=== PATIENT | female | born 1940 | race Caucasian/White ===

== ENCOUNTER 2017-02-08 12:51 | Inpatient (IN) | payer MEDICARE, BC ==
[~2017-02-08] VITALS: Ht 154.9 cm; Wt 58.1 kg
[~2017-02-08 12:51] MED LIST: ALEN70TA7 PO; AMIT10TA92 PO; CALC-5 PO; LISI1TAB PO; LOPE-26 PO; METOPROLOL PO; PHEN30TA40 PO; [UNRECOGNIZED DRUG - CODE] PO
--- OUTSIDE RECORDS SUMMARY | 2017-02-08 12:55 | XMS REPORT | Referral Summary ---
Author Author [facility] Organization [facility] Address Unknown Phone Unavailable Care Team Providers Care Master Rigger Name Role Phone GerripoloMichael belcher Primary Care Physician [phone] Encounter VC Date(s): 03/29/15 - 03/29/15 [facility] [address] [place] [address] [place] Hu [id number] Discharge Diagnosis: Age related osteoporosis Discharge Diagnosis: Seizure disorder Discharge Diagnosis: Essential hypertension Discharge Disposition: 01-Home or Self Care Attending Physician: Parker Ayala MD Admitting Physician: Parker Ayala MD Vital Signs Most recent to 1 oldest [Reference Range]: Temperature Tympanic 35.4 degC [36.6-38.1 degC] *LOW* (03/29/15 10:02 AM) Peripheral Pulse 65 bpm Rate [60-100 bpm] (03/29/15 10:02 AM) Respiratory Rate 16 br/min [14-20 br/min] (03/29/15 10:02 AM) Blood Pressure 102/68 mmHg [90-140/60-90 mmHg] (03/29/15 10:02 AM) SpO2 96 % (03/29/15 10:02 AM) Problem List Condition Effective Dates Status Health Status Informant Anemia(Confirmed) Resolved Carcinoma in situ of Resolved cervix(Confirmed) Colon Resolved ulcer(Confirmed) Dilated bile duct - Resolved dilated common bile duct(Confirmed) Fibrocystic Resolved disease(Confirmed) Hypoglycemia(Confirm Resolved ed) Pyloric channel Resolved ulcer(Confirmed) Allergies, Adverse Reactions, Alerts Substance Reaction Severity Status aspirin COLON BLEEDING Severe Active ULCERITIVE COLITIS PER DR ZUNIGA Medications Fosamax 70 mg oral tablet See Instructions, TAKE 1 TABLET BY MOUTH ONCE WEEKLY BEFORE BREAKFAST, ON AN EMPTY STOMACH: REMAIN UPRIGHT FOR 30 MINUTES, # 12 tabs, eRx: [facility] # [id number], TAKE 1 TABLET BY MOUTH ONCE WEEKLY BEFORE BREAKFAST, ON AN EMPTY STOMACH : REMAIN UPRIG... Start Date: 08/08/15 Status: Ordered Imodium A-D 2 mg, Oral, Diarrhea/Loose Stools, 0 Refill(s) Start Date: 03/30/14 Status: Ordered lisinopril 10 mg oral tablet 10 mg 1 tabs, Oral, Daily, # 90 tabs, 1 Refill(s), Pharmacy: [facility] # [id number], 1 tabs Oral Daily Start Date: 07/31/15 Status: Ordered Melatonin Bedtime (once a day), 0 Refill(s) Start Date: 11/29/14 Status: Ordered Metoprolol Tartrate 50 mg oral tablet See Instructions, TAKE ONE-HALF TABLET BY MOUTH TWICE A DAY WITH MEALS, # 90 tabs, eRx: [facility] #[id number], TAKE ONE-HALF TABLET BY MOUTH TWICE A DAY WITH MEALS Start Date: 07/20/15 Status: Ordered multivitamin 1 tabs, Oral, Daily, 0 Refill(s) Start Date: 03/30/14 Status: Ordered Os-John 500 2 tabs, Oral, Daily, 0 Refill(s) Start Date: 03/30/14 Status: Ordered PHENobarbital 32.4 mg oral tablet See Instructions, TAKE 3 TABLETS BY MOUTH EVERY MORNING AND 2 TABLETS IN THE EVENING, # 450 tabs, 0 Refill(s) Start Date: 07/27/15 Status: Ordered Results Chemistry Most recent to 1 oldest [Reference Range]: Sodium Lvl [135-144 133 mEq/L mEq/L] *LOW* (03/29/15 10:40 AM) Potassium Lvl 4.6 mEq/L [3.5-5.2 mEq/L] (03/29/15 10:40 AM) Chloride [99-111 97 mEq/L mEq/L] *LOW* (03/29/15 10:40 AM) CO2 [22-31 mEq/L] 29 mEq/L (03/29/15 10:40 AM) AGAP [3-20] 7 (03/29/15 10:40 AM) BUN [10-20 mg/dL] 13 mg/dL (03/29/15 10:40 AM) Glucose Lvl [70-99 84 mg/dL mg/dL] (03/29/15 10:40 AM) Creatinine Lvl 0.72 mg/dL [0.57-1.11 mg/dL] (03/29/15 10:40 AM) eGFR [>60 mL/min] >60 mL/min 1 (03/29/15 10:40 AM) Calcium Lvl 9.5 mg/dL [8.9-10.5 mg/dL] (03/29/15 10:40 AM) 1Result Comment: Multiply eGFR results by 1.21 for race. Immunizations Vaccine Date Refusal Reason influenza virus vaccine, inactivated 07/31/15 influenza virus vaccine, inactivated 07/29/14 influenza virus vaccine, live 07/21/13 pneumococcal 23-polyvalent vaccine 07/21/13 Procedures Procedure Date Related Diagnosis Body Site Bilateral Cataract extraction and insertion 2014 of intraocular lens Left Cataract extraction and insertion of 2014 intraocular lens Lysis of adhesions - for sm. bowel 10/06/13 obstruction Colonoscopy1 2010 Colonoscopy normal 10/06/07 ERCP - no masses 10/06/02 Transfusion2 10/06/02 Colonoscopy 2003 Vertebroplasty T12 2002 Appendectomy 10/06/91 Cholecystectomy 10/06/91 Gastroduodenostomy - Bilroth 1 10/06/91 Vagotomy 10/06/91 Biopsy of breast - LT Bone marrow aspiration Bone marrow biopsy BSO - Bilateral salpingo-oophorectomy Esophagogastroduodenoscopy X23 Intraoral - sialithotomy Sigmoidoscopy=proctitis Surgery - RT. thumb Tonsillectomy Ulcerative colitis - proctoscopy Vaginal hysterectomy 1normal 2anemia 95879 & 2003 Social History Social History Type Response Smoking Status Former smoker; Type: Cigarettes Assessment and Plan Extracted from: Title: Ambulatory Patient Education Author: Parker Ayala MD Date: Family Medicine Hypertension As your heart beats, it forces blood through your arteries. This force is your blood pressure. If the pressure is too high, it is called hypertension (HTN) or high blood pressure. HTN is dangerous because you may have it and not know it. High blood pressure may mean that your heart has to work harder to pump blood. Your arteries may be narrow or stiff. The extra work puts you at risk for heart disease, stroke, and other problems. Blood pressure consists of two numbers, a higher number over a lower, 110/72, for example. It is stated as "110 over 72." The ideal is below 120 for the top number (systolic ) and under 80 for the bottom (diastolic ). Write down your blood pressure today. You should pay close attention to your blood pressure if you have certain conditions such as: Heart failure. Prior heart attack. Diabetes Chronic kidney disease. Prior stroke. Multiple risk factors for heart disease. To see if you have HTN, your blood pressure should be measured while you are seated with your arm held at the level of the heart. It should be measured at least twice. A one-time elevated blood pressure reading (especially in the Emergency Department) does not mean that you need treatment. There may be conditions in which the blood pressure is different between your right and left arms. It is important to see your caregiver soon for a recheck. Most people have essential hypertension which means that there is not a specific cause. This type of high blood pressure may be lowered by changing lifestyle factors such as: Stress. Smoking. Lack of exercise. Excessive weight. Drug/tobacco/alcohol use. Eating less salt. Most people do not have symptoms from high blood pressure until it has caused damage to the body. Effective treatment can often prevent, delay or reduce that damage. TREATMENT When a cause has been identified, treatment for high blood pressure is directed at the cause. There are a large number of medications to treat HTN. These fall into several categories, and your caregiver will help you select the medicines that are best for you. Medications may have side effects. You should review side effects with your caregiver. If your blood pressure stays high after you have made lifestyle changes or started on medicines, Your medication(s) may need to be changed. Other problems may need to be addressed. Be certain you understand your prescriptions, and know how and when to take your medicine. Be sure to follow up with your caregiver within the time frame advised ( usually within two weeks) to have your blood pressure rechecked and to review your medications. If you are taking more than one medicine to lower your blood pressure, make sure you know how and at what times they should be taken. Taking two medicines at the same time can result in blood pressure that is too low. SEEK IMMEDIATE MEDICAL CARE IF: You develop a severe headache, blurred or changing vision, or confusion. You have unusual weakness or numbness, or a faint feeling. You have severe chest or abdominal pain, vomiting, or breathing problems. MAKE SURE YOU: Understand these instructions. Will watch your condition. Will get help right away if you are not doing well or get worse. Document Released: 09/22/2006 Document Revised: 12/14/2012 Document Reviewed: ExitCare Patient Information 2014 [employer] Follow Up With: Where: When: Parker Ayala [address] [place] [address] Drive; Via [facility] [place] [address] Business (1) Within 3 to 5 days Comments: Extracted from: Title: Office Visit Note Author: Parker Ayala MD Date: 03/29/15 Assessment/Plan Age related osteoporosis She will be due for bone densitometry after July 27, 2015. Essential hypertension Basic metabolic profile will be rechecked. Ordered: Basic Metabolic Panel Seizure disorder She will continue her present medication.
--- OUTSIDE RECORDS SUMMARY | 2017-02-08 12:55 | XMS REPORT | Referral Summary ---
Author Organization Unknown Address Unknown Phone Unavailable Care Team Providers Care Analytics Consultant Name Role Phone Morgan Ayala Primary Care Physician [phone] Encounter VC Date(s): 11/29/14 - 11/29/14 [facility] [address] [place] [address] [place] Hu [id number] Discharge Diagnosis: Seizure disorder Discharge Diagnosis: Age related osteoporosis Discharge Diagnosis: Essential hypertension Discharge Disposition: Home or Self Care Attending Physician: Parker Ayala MD Admitting Physician: Parker Ayala MD Vital Signs Most recent to 1 oldest [Reference Range]: Temperature Oral 36.6 degC [35.8-37.3 degC] (11/29/14 10:36 AM) Peripheral Pulse 55 bpm Rate [60-100 bpm] *LOW* (11/29/14 10:36 AM) Respiratory Rate 14 br/min [14-20 br/min] (11/29/14 10:36 AM) Blood Pressure 115/76 mmHg [90-140/60-90 mmHg] (11/29/14 10:36 AM) Most recent to 1 oldest [Reference Range]: SpO2 97 % (11/29/14 10:36 AM) Problem List Condition Effective Dates Status [...] FOR 30 MINUTES, # 12 tabs, eRx: [facility] # [id number], TAKE 1 TABLET BY MOUTH ONCE WEEKLY BEFORE BREAKFAST, ON AN EMPTY STOMACH : REMAIN UPRIG... Special Instructions: TAKE 1 TABLET BY MOUTH ONCE WEEKLY BEFORE BREAKFAST, ON AN EMPTY STOMACH: REMAIN UPRIGHT FOR 30 MINUTES Start Date: 11/29/14 Status: Ordered Imodium A-D 2 mg, Oral, Diarrhea/Loose Stools, 0 Refill(s) Start Date: 03/30/14 Status: Ordered lisinopril-hydrochlorothiazide 20 mg-25 mg oral tablet See Instructions, TAKE ONE-HALF TABLET BY MOUTH EVERY DAY, # 45 tabs, eRx: [facility] #[id number], TAKE ONE-HALF TABLET BY MOUTH EVERY DAY Special Instructions: TAKE ONE-HALF TABLET BY MOUTH EVERY DAY Start Date: 10/31/14 Status: Ordered Melatonin Bedtime (once a day), 0 Refill(s) Start Date: 11/29/14 Status: Ordered Metoprolol Tartrate 50 mg oral tablet See Instructions, TAKE ONE-HALF TABLET BY MOUTH TWICE A DAY WITH MEALS, # 90 tabs, eRx: [facility] #[id number], TAKE ONE-HALF TABLET BY MOUTH TWICE A DAY WITH MEALS Special Instructions: TAKE ONE-HALF TABLET BY MOUTH TWICE A DAY WITH MEALS Start Date: 10/14/14 Status: Ordered multivitamin 1 tabs, Oral, Daily, 0 Refill(s) Start Date: 03/30/14 Status: Ordered Os-John 500 2 tabs, Oral, Daily, 0 Refill(s) Start Date: 03/30/14 Status: Ordered PHENobarbital 32.4 mg oral tablet See Instructions, TAKE 3 TABLETS BY MOUTH EVERY MORNING AND 2 TABLETS IN THE EVENING, # 450 tabs, 0 Refill(s), Patient will need follow up appointment prior to next refill Special Instructions: TAKE 3 TABLETS BY MOUTH EVERY MORNING AND 2 TABLETS IN THE EVENING Start Date: 10/31/14 Status: Ordered Results No data available for this section Immunizations Vaccine Date Refusal Reason influenza virus vaccine, inactivated 07/29/14 influenza virus vaccine, live 07/21/13 pneumococcal 13-valent conjugate vaccine 07/21/13 Procedures Procedure Date Related Diagnosis Body Site Left Cataract extraction and insertion of 2015 intraocular lens Lysis of adhesions - for [...] colitis - proctoscopy Vaginal hysterectomy 1normal 2anemia 65106 & 2003 Social History Social History Type [...] Released: 09/22/2006 Document Revised: 12/14/2012 Document Reviewed: [facility] [place] Patient Information 2014 [employer]. Follow Up With: Where: When: Parker Ayala [address] [place] [address] Drive; [place] [address] Business (1) In 4 months 03/29/2015 Comments: Extracted from: Title: Office Visit Note Author: Parker Ayala MD Date: 11/29/14 Assessment/Plan Age related osteoporosis She will be due for repeat bone densitometry in August 2015. Ordered: Office Visit Level 4 Est 29849 Essential hypertension This has been well controlled. She will continue her same medication. Ordered: Office Visit Level 4 Est 28084 Seizure disorder This has been stable recently. Ordered: Office Visit Level 4 Est 13211 Orders: alendronate, See Instructions, TAKE 1 TABLET BY MOUTH ONCE WEEKLY BEFORE BREAKFAST, ON AN EMPTY STOMACH: REMAIN UPRIGHT FOR 30 MINUTES, # 12 tabs , eRx: [facility] #[id number], TAKE 1 TABLET BY MOUTH ONCE WEEKLY BEFORE BREAKFAST, ON AN EMPTY STOMACH: REMAIN UPRIG...
--- OUTSIDE RECORDS SUMMARY | 2017-02-08 12:55 | XMS REPORT | Referral Summary ---
Author Author [facility] Organization [facility] Address Unknown Phone Unavailable Care Team Providers Care Rigging Man Name Role Phone Michael Timmons Primary Care Physician [phone] Encounter VC Date(s): 10/18/15 - 10/18/15 [facility], [address] [place] Hu [id number] Discharge Disposition: 01-Home or Self Care Attending Physician: Zeus Timmons MD Admitting Physician: Zeus Timmons MD Vital Signs Most recent to 1 oldest [Reference Range]: Blood Pressure 110/70 mmHg [90-140/60-90 mmHg] (10/18/15 1:07 PM) Problem List Condition Effective Dates Status Health Status Informant Adult idiopathic Active generalized osteoporosis(Confirm ed) Anemia(Confirmed) Resolved Benign essential Active hypertension(Confirm ed) Carcinoma in situ of Resolved cervix(Confirmed) Colon Resolved ulcer(Confirmed) Dilated bile duct - Resolved dilated common bile duct(Confirmed) Epilepsy(Confirmed) Active Fibrocystic Resolved disease(Confirmed) Hypoglycemia(Confirm Resolved ed) Hyponatremia(Confirm Active ed) Pyloric channel Resolved ulcer(Confirmed) Allergies, Adverse Reactions, Alerts Substance Reaction Severity Status aspirin COLON BLEEDING Severe Active ULCERITIVE COLITIS PER DR ZUNIGA Medications Fosamax 70 mg oral tablet See Instructions, TAKE 1 TABLET BY MOUTH ONCE WEEKLY BEFORE BREAKFAST, ON AN EMPTY STOMACH: REMAIN UPRIGHT FOR 30 MINUTES, # 12 tabs, 1 Refill(s), Pharmacy: [facility] #[id number], TAKE 1 TABLET BY MOUTH ONCE WEEKLY BEFORE BREAKFAST, ON AN EMPTY STO... Start Date: 10/18/15 Status: Ordered Imodium A-D 2 mg, Oral, Diarrhea/Loose Stools, 0 Refill(s) Start Date: 03/30/14 Status: Ordered lisinopril 10 mg oral tablet 10 mg 1 tabs, Oral, Daily, # 90 tabs, 1 Refill(s), Pharmacy: [facility] # [id number], 1 tabs Oral Daily Start Date: 07/31/15 Status: Ordered lisinopril 10 mg oral tablet See Instructions, TAKE 1 TABLET BY MOUTH DAILY, # 90 tabs, 1 Refill(s), eRx: [facility] #[id number], TAKE 1 TABLET BY MOUTH DAILY Start Date: 10/18/15 Status: Ordered Melatonin Bedtime (once a day), 0 Refill(s) Start Date: 11/29/14 Status: Ordered Metoprolol Tartrate 50 mg oral tablet See Instructions, TAKE ONE-HALF TABLET BY MOUTH TWICE A DAY WITH MEALS, # 90 tabs, 1 Refill(s), Pharmacy: [facility] #[id number], TAKE ONE-HALF TABLET BY MOUTH TWICE A DAY WITH MEALS Start Date: 10/18/15 Status: Ordered multivitamin 1 tabs, Oral, Daily, 0 Refill(s) Start Date: 03/30/14 Status: Ordered Os-John 500 2 tabs, Oral, Daily, 0 Refill(s) Start Date: 03/30/14 Status: Ordered PHENobarbital 32.4 mg oral tablet See Instructions, TAKE 3 TABLETS BY MOUTH EVERY MORNING AND 2 TABLETS IN THE EVENING, # 450 tabs, 1 Refill(s) Start Date: 10/18/15 Status: Ordered Results No data available for this section Immunizations Vaccine Date Refusal Reason influenza virus vaccine, inactivated 07/31/15 influenza virus vaccine, inactivated 07/29/14 influenza virus vaccine, live 07/21/13 pneumococcal 23-polyvalent vaccine 07/21/13 Procedures Procedure Date Related Diagnosis Body Site Bilateral Cataract extraction and insertion 2014 of intraocular lens Left Cataract extraction and insertion of 2015 [...] colitis - proctoscopy Vaginal hysterectomy 1normal 2anemia 00654 & 2003 Social History Social History Type Response Smoking Status Former smoker; Type: Cigarettes Assessment and Plan Extracted from: Title: Ambulatory Patient Education Author: Zeus Timmons MD Date: Preventive Medicine Bone Health Our bones do many things. They provide structure, protect organs, anchor muscles , and store calcium. Adequate calcium in your diet and weight-bearing physical activity help build strong bones, improve bone amounts, and may reduce the risk of weakening of bones (osteoporosis) later in life. PEAK BONE MASS By age 20, the average woman has acquired most of her skeletal bone mass. A large decline occurs in older adults which increases the risk of osteoporosis. In women this occurs around the time of menopause. It is important for young girls to reach their peak bone mass in order to maintain bone health throughout life. A person with high bone mass as a young adult will be more likely to have a higher bone mass later in life. Not enough calcium consumption and physical activity early on could result in a failure to achieve optimum bone mass in adulthood. OSTEOPOROSIS Osteoporosis is a disease of the bones. It is defined as low bone mass with deterioration of bone structure. Osteoporosis leads to an increase risk of fractures with falls. These fractures commonly happen in the wrist, hip, and spine. While men and women of all ages and background can develop osteoporosis, some of the risk factors for osteoporosis are: Female. White. Postmenopausal. Older adults. Small in body size. Eating a diet low in calcium. Physically inactive. Smoking. Use of some medications. Family history. CALCIUM Calcium is a mineral needed by the body for healthy bones, teeth, and proper function of the heart, muscles, and nerves. The body cannot produce calcium so it must be absorbed through food. Good sources of calcium include: Dairy products (low fat or nonfat milk, cheese, and yogurt). Dark green leafy vegetables (bok skip and broccoli). Calcium fortified foods (orange juice, cereal, bread, soy beverages, and tofu products). Nuts (almonds). Recommended amounts of calcium vary for individuals. RECOMMENDED CALCIUM INTAKES Age and Amount in mg per day Children 1 to 3 years / 700 mg Children 4 to 8 years / 1,000 mg Children 9 to 13 years / 1,300 mg Teens 14 to 18 years / 1,300 mg Adults 19 to 50 years / 1,000 mg Adult women 51 to 70 years / 1,200 mg Adults 71 years and older / 1,200 mg and teens / 1,300 mg and adults / 1,000 mg Vitamin D also plays an important role in healthy bone development. Vitamin D helps in the absorption of calcium. WEIGHT-BEARING PHYSICAL ACTIVITY Regular physical activity has many positive health benefits. Benefits include strong bones. Weight-bearing physical activity early in life is important in reaching peak bone mass. Weight-bearing physical activities cause muscles and bones to work against gravity. Some examples of weight bearing physical activities include: Walking, jogging, or running. Field Hockey. Jumping rope. Dancing. Soccer. Tennis or Racquetball. Stair climbing. Basketball. Hiking. Weight lifting. Aerobic fitness classes. Including weight-bearing physical activity into an exercise plan is a great way to keep bones healthy. Adults: Engage in at least 30 minutes of moderate physical activity on most, preferably all, days of the week. Children: Engage in at least 60 minutes of moderate physical activity on most, preferably all, days of the week. FOR MORE INFORMATION [place] [employer], Center for Nutrition Policy and Promotion: www.cnpp.usda.gov National Osteoporosis Foundation: www.nof.org Document Released: 12/12/2004 Document Revised: 01/17/2014 Document Reviewed: ExitCare Patient Information 2015 [facility], [facility]. This information is not intended to replace advice given to you by your health care provider. Make sure you discuss any questions you have with your health care provider. No follow up information was provided. Extracted from: Title: Office Visit Note Author: Zeus Timmons MD Date: 10/18/15 Assessment/Plan Adult idiopathic generalized osteoporosis This issue was reviewed, appears stable, and current therapy continued except as mentioned. Appropriate lab was reviewed from the most recent appropriate entry and lab was ordered if needed in the cpoe/nursing orders, and follow up recommended generally in 90 days and no later then six months. Refill meds. DXA utd by report. Anemia The patient's issue is nearly or completely resolved. There is no further issues or testing desired by them at this time. Lab pending. Benign essential hypertension This issue was reviewed, appears stable, and current therapy continued except as mentioned. Appropriate lab was reviewed from the most recent appropriate entry and lab was ordered if needed in the cpoe /nursing orders, and follow up recommended generally in 90 days and no later then six months. Refill meds. The patient has family members present who are agreeable with today's plan and have no additional concerns or requests. here. Carcinoma in situ of cervix The patient's issue is nearly or completely resolved. There is no further issues or testing desired by them at this time. Epilepsy This issue was reviewed, appears stable, and current therapy continued except as mentioned. Appropriate lab was reviewed from the most recent appropriate entry and lab was ordered if needed in the cpoe/nursing orders, and follow up recommended generally in 90 days and no later then six months. No seizures inyears. Hyponatremia The patient's issue is nearly or completely resolved. There is no further issues or testing desired by them at this time. Likely secondary to seizure meds. Resolved with last lab.
--- OUTSIDE RECORDS SUMMARY | 2017-02-08 12:55 | XMS REPORT | Referral Summary ---
Author Author [facility] Organization [facility] Address Unknown Phone Unavailable Care Team Providers Care Biscuit Maker Name Role Phone GerrialvaroMichael Primary Care Physician [phone] Encounter VC Date(s): 07/31/15 - 07/31/15 [facility] [address] [place] [address] [place] Hu [id number] Discharge Diagnosis: Essential hypertension Discharge Diagnosis: Seizure disorder Discharge Diagnosis: Age related osteoporosis Discharge Disposition: 01-Home or Self Care Attending Physician: Parker Ayala MD Admitting Physician: Parker Ayala MD Vital Signs Most recent to 1 oldest [Reference Range]: Temperature Tympanic 36.3 degC [36.6-38.1 degC] *LOW* (07/31/15 10:16 AM) Peripheral Pulse 66 bpm Rate [60-100 bpm] (07/31/15 10:16 AM) Blood Pressure 114/66 mmHg [90-140/60-90 mmHg] (07/31/15 10:16 AM) SpO2 96 % (07/31/15 10:16 AM) Problem List Condition Effective Dates Status [...] MINUTES, # 12 tabs, 1 Refill(s), Pharmacy: [facility] #[id number], TAKE 1 TABLET BY MOUTH ONCE WEEKLY BEFORE BREAKFAST, ON AN EMPTY STO... Start Date: 10/18/15 Status: Ordered Imodium A-D 2 mg, Oral, Diarrhea/Loose Stools, 0 Refill(s) Start Date: 03/30/14 Status: Ordered lisinopril 10 mg oral tablet 10 mg 1 tabs, Oral, Daily, # 90 tabs, 1 Refill(s), Pharmacy: [facility] # [id number], 1 tabs Oral Daily Start Date: 07/31/15 Status: Ordered lisinopril 10 mg oral tablet See Instructions, TAKE 1 TABLET BY MOUTH DAILY, # 90 tabs, 1 Refill(s), eRx: [facility] #[id number], TAKE 1 TABLET BY MOUTH DAILY Start Date: 10/18/15 Status: Ordered Melatonin Bedtime (once a day), 0 Refill(s) Start Date: 11/29/14 Status: Ordered Metoprolol Tartrate 50 mg oral tablet See Instructions, TAKE ONE-HALF TABLET BY MOUTH TWICE A DAY WITH MEALS, # 90 tabs, 1 Refill(s), Pharmacy: [facility] #[id number], TAKE ONE-HALF TABLET BY MOUTH TWICE A [...] # 450 tabs, 0 Refill(s) Start Date: 10/24/15 Status: Ordered Results No data available for [...] Colonoscopy normal 10/06/07 ERCP - no masses 1/1/03 Transfusion2 10/06/02 Colonoscopy 2003 Vertebroplasty T12 2002 Appendectomy 10/06/91 Cholecystectomy 10/06/91 Gastroduodenostomy - Bilroth 1 10/06/91 Vagotomy 10/06/91 Biopsy of breast - LT Bone marrow aspiration Bone marrow biopsy BSO - Bilateral salpingo-oophorectomy Esophagogastroduodenoscopy X23 Intraoral - sialithotomy Sigmoidoscopy=proctitis Surgery - RT. thumb Tonsillectomy Ulcerative colitis - proctoscopy Vaginal hysterectomy 1normal 2anemia 44496 & 2003 Social History Social History Type Response Smoking Status Former smoker; Type: Cigarettes Assessment and Plan Extracted from: Title: Ambulatory Patient Education Author: Parker Ayala MD Date: Family Medicine Hypertension Hypertension is another name for high blood pressure. High blood pressure forces your heart to work harder to pump blood. A blood pressure reading has two numbers, which includes a higher number over a lower number (example: 110/72 ). HOME CARE Have your blood pressure rechecked by your doctor. Only take medicine as told by your doctor. Follow the directions carefully. The medicine does not work as well if you skip doses. Skipping doses also puts you at risk for problems. Do not smoke. Monitor your blood pressure at home as told by your doctor. GET HELP IF: You think you are having a reaction to the medicine you are taking. You have repeat headaches or feel dizzy. You have puffiness (swelling) in your ankles. You have trouble with your vision. GET HELP RIGHT AWAY IF: You get a very bad headache and are confused. You feel weak, numb, or faint. You get chest or belly (abdominal) pain. You throw up (vomit). You cannot breathe very well. MAKE SURE YOU: Understand these instructions. Will watch your condition. Will get help right away if you are not doing well or get worse. Document Released: 03/10/2009 Document Revised: 09/27/2014 Document Reviewed: ExitCare Patient Information 2015 [email or web address]. This information is not intended to replace advice given to you by your health care provider. Make sure you discuss any questions you have with your health care provider. Follow Up With: Where: When: Parker Ayala [address] [place] [address] Drive; [place] [address] [employer] ([employer] In 4 months 12/01/2015 Comments: Extracted from: Title: Office Visit Note Author: Parker Ayala MD Date: 07/31/15 Assessment/Plan Age related osteoporosis She will plan to schedule bone densitometry in August,. Essential hypertension This is well controlled. She will continue her same medication. Seizure disorder She will continue her same medication. Phenobarbital level will be checked. Orders: lisinopril, 10 mg 1 tabs, Oral, Daily, # 90 tabs, 1 Refill(s), Pharmacy: [facility] #[id number], 1 tabs Oral Daily Addendum She will receive influenza immunization today. by Parker Ayala MD on July 31, 2015 11:25:59 CDT
--- OUTSIDE RECORDS SUMMARY | 2017-02-08 12:55 | XMS REPORT | Referral Summary ---
Author Author [facility] Organization [facility] Address Unknown Phone Unavailable Care Team Providers Care Operation Manager Name Role Phone Morgan Ayala Primary Care Physician [phone] Encounter VC Date(s): 07/31/15 - 07/31/15 [facility] [address] [place] [address] [place] [id number] Discharge Diagnosis: Essential hypertension Discharge Diagnosis: Seizure [...] FOR 30 MINUTES, # 12 tabs, eRx: [facility] # [id number], TAKE 1 TABLET BY MOUTH ONCE WEEKLY BEFORE BREAKFAST, ON AN EMPTY STOMACH : REMAIN UPRIG... Start Date: 05/11/15 Status: Ordered Imodium A-D 2 mg, Oral, Diarrhea/Loose Stools, 0 Refill(s) Start Date: 03/30/14 Status: Ordered lisinopril 10 mg oral tablet 10 mg 1 tabs, Oral, Daily, # 90 tabs, 1 Refill(s), Pharmacy: [facility] # [id number], 1 tabs Oral Daily Start Date: 07/31/15 Status: Ordered Melatonin Bedtime (once a day), 0 Refill(s) Start Date: 11/29/14 Status: Ordered Metoprolol Tartrate 50 mg oral tablet See Instructions, TAKE ONE-HALF TABLET BY MOUTH TWICE A DAY WITH MEALS, # 90 tabs, eRx: [facility] #[id number], TAKE ONE-HALF TABLET BY MOUTH TWICE A [...] Refill(s) Start Date: 07/27/15 Status: Ordered Results No data available for [...] colitis - proctoscopy Vaginal hysterectomy 1normal 2anemia 15278 & 2003 Social History Social History Type [...] Released: 03/10/2009 Document Revised: 09/27/2014 Document Reviewed: [facility] [place] Patient Information 2015 [place] [place] ? [facility]. This information is not intended to replace advice given to you by your health care provider. Make sure you discuss any questions you have with your health care provider. Follow Up With: Where: When: Parker Ayala [address]; [place] [address] Business (1) In 4 months 12/01/2015 Comments: Extracted from: [...] Daily, # 90 tabs, 1 Refill(s), Pharmacy: [facility] #[id number], 1 tabs Oral Daily Addendum She will receive influenza immunization today. by Parker Ayala MD on July 31, 2015 11:25:59 CDT
--- OUTSIDE RECORDS SUMMARY | 2017-02-08 12:55 | XMS REPORT | Referral Summary ---
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 Discharge Diagnosis: Epilepsy Discharge Diagnosis: Pyloric channel ulcer Discharge Diagnosis: Benign essential hypertension Discharge Disposition: 01-Home or Self Care Attending Physician: Zeus Timmons MD Admitting Physician: Zeus Timmons MD Vital Signs Most recent to 1 oldest [Reference Range]: Blood Pressure 140/80 mmHg [90-140/60-90 mmHg] (10/31/16 1:28 PM) Problem List Condition Effective Dates Status [...] Active ULCERITIVE COLITIS PER DR ZUNIGA Medications ALENDRONATE SODIUM 70 MG TAB See Instructions, TAKE 1 TABLET BY MOUTH ONCE WEEKLY BEFORE BREAKFAST, ON AN EMPTY STOMACH: REMAIN UPRIGHT FOR 30 MINUTES, # 12 tabs, eRx: [facility] # [id number], TAKE 1 TABLET BY MOUTH ONCE WEEKLY BEFORE BREAKFAST, ON AN EMPTY STOMACH : REMAIN UPRIG... Start Date: 07/08/16 Status: Ordered Imodium A-D 2 mg, Oral, Diarrhea/Loose Stools, 0 Refill(s) Start Date: 03/30/14 Status: Ordered lisinopril 10 mg oral tablet 10 mg 1 tabs, Oral, Daily, # 90 tabs, 1 Refill(s), Pharmacy: [facility] # [id number], 1 tabs Oral Daily Start Date: 07/09/16 Status: Ordered Melatonin Bedtime (once a day), 0 Refill(s) Start Date: 11/29/14 Status: Ordered Metoprolol Tartrate 50 mg oral tablet See Instructions, TAKE ONE-HALF TABLET BY MOUTH TWO TIMES A DAY WITH FOOD/ PT DUE FOR APPOINTMENT, # 90 tabs, 0 Refill(s), Pharmacy: [facility] #[id number] Start Date: 10/08/16 Status: Ordered multivitamin 1 tabs, Oral, Daily, 0 Refill(s) Start Date: 03/30/14 Status: Ordered Os-John 500 2 tabs, Oral, Daily, 0 Refill(s) Start Date: 03/30/14 Status: Ordered PHENobarbital 32.4 mg oral tablet See Instructions, TAKE 3 TABLETS BY MOUTH EVERY MORNING AND 2 TABLETS IN THE EVENING N [place], # 450 tabs, 1 Refill(s) Start Date: 10/31/16 Status: Ordered Reclast 5 mg/100 mL intravenous solution 5 mg 100 mL, IV, Once, IV infusion yearly for osteoporosis., 0 Refill(s) Start Date: 08/01/16 Status: Ordered Results No data available for this section Immunizations Given and Recorded Vaccine Date Status Refusal Reason influenza virus vaccine, inactivated 10/16/16 Given influenza virus vaccine, inactivated 07/31/15 Given influenza virus vaccine, inactivated 07/29/14 Recorded influenza virus vaccine, live 07/21/13 Given pneumococcal 13-valent conjugate vaccine 10/16/16 Given pneumococcal 13-valent conjugate vaccine1 07/21/13 Given pneumococcal 23-polyvalent vaccine 07/21/13 Given 1Result Comment: [06/07/2015 Uncharted] Uploaded in Error - CC Procedures Procedure Date Related Diagnosis Body Site [...] colitis - proctoscopy Vaginal hysterectomy 1normal 2anemia 75922 & 2003 Social History Social History Type Response Smoking Status Former smoker; Type: Cigarettes; Tobacco use per day: 1 Pack1 130 pack years Assessment and Plan Extracted from: Title: Ambulatory Patient Education Author: Zeus Timmons MD Date: Preventive Medicine Hypertension Hypertension, commonly called high blood pressure, is when the force of blood pumping through your arteries is too strong. Your arteries are the blood vessels that carry blood from your heart throughout your body. A blood pressure reading consists of a higher number over a lower number, such as 110/72. The higher number (systolic) is the pressure inside your arteries when your heart pumps. The lower number (diastolic) is the pressure inside your arteries when your heart relaxes. Ideally you want your blood pressure below 120/80. Hypertension forces your heart to work harder to pump blood. Your arteries may become narrow or stiff. Having untreated or uncontrolled hypertension can cause heart attack, stroke, kidney disease, and other problems. RISK FACTORS Some risk factors for high blood pressure are controllable. Others are not. Risk factors you cannot control include: Race. You may be at higher risk if you are . Age. Risk increases with age. Gender. Men are at higher risk than women before age 45 years. After age 65, women are at higher risk than men. Risk factors you can control include: Not getting enough exercise or physical activity. Being overweight. Getting too much fat, sugar, calories, or salt in your diet. Drinking too much alcohol. SIGNS AND SYMPTOMS Hypertension does not usually cause signs or symptoms. Extremely high blood pressure (hypertensive crisis) may cause headache, anxiety, shortness of breath , and nosebleed. DIAGNOSIS To check if you have hypertension, your health care provider will measure your blood pressure while you are seated, with your arm held at the level of your heart. It should be measured at least twice using the same arm. Certain conditions can cause a difference in blood pressure between your right and left arms. A blood pressure reading that is higher than normal on one occasion does not mean that you need treatment. If it is not clear whether you have high blood pressure, you may be asked to return on a different day to have your blood pressure checked again. Or, you may be asked to monitor your blood pressure at home for 1 or more weeks. TREATMENT Treating high blood pressure includes making lifestyle changes and possibly taking medicine. Living a healthy lifestyle can help lower high blood pressure. You may need to change some of your habits. Lifestyle changes may include: Following the DASH diet. This diet is high in fruits, vegetables, and whole grains. It is low in salt, red meat, and added sugars. Keep your sodium intake below 2,300 mg per day. Getting at least 3045 minutes of aerobic exercise at least 4 times per week. Losing weight if necessary. Not smoking. Limiting alcoholic beverages. Learning ways to reduce stress. Your health care provider may prescribe medicine if lifestyle changes are not enough to get your blood pressure under control, and if one of the following is true: You are 1859 years of age and your systolic blood pressure is above 140. You are 60 years of age or older, and your systolic blood pressure is above 150. Your diastolic blood pressure is above 90. You have diabetes, and your systolic blood pressure is over 140 or your diastolic blood pressure is over 90. You have kidney disease and your blood pressure is above 140/90. You have heart disease and your blood pressure is above 140/90. Your personal target blood pressure may vary depending on your medical conditions, your age, and other factors. HOME CARE INSTRUCTIONS Have your blood pressure rechecked as directed by your health care provider. Take medicines only as directed by your health care provider. Follow the directions carefully. Blood pressure medicines must be taken as prescribed. The medicine does not work as well when you skip doses. Skipping doses also puts you at risk for problems. Do not smoke. Monitor your blood pressure at home as directed by your health care provider. SEEK MEDICAL CARE IF: You think you are having a reaction to medicines taken. You have recurrent headaches or feel dizzy. You have swelling in your ankles. You have trouble with your vision. SEEK IMMEDIATE MEDICAL CARE IF: You develop a severe headache or confusion. You have unusual weakness, numbness, or feel faint. You have severe chest or abdominal pain. You vomit repeatedly. You have trouble breathing. MAKE SURE YOU: Understand these instructions. Will watch your condition. Will get help right away if you are not doing well or get worse. This information is not intended to replace advice given to you by your health care provider. Make sure you discuss any questions you have with your health care provider. Document Released: 09/22/2006 Document Revised: 02/06/2016 Document Reviewed: [employer] Interactive Patient Education 2016 [employer] No follow up information was provided. Extracted from: Title: Office Visit Note Author: Zeus Timmons MD Date: 10/31/16 Assessment/Plan Benign essential hypertension This issue was reviewed, appears stable, and current therapy continued except as mentioned. Appropriate lab was reviewed from the most recent appropriate entry and lab was ordered if needed in the cpoe/nursing orders, and follow up recommended generally in 90 days and no later then six months. The patient reports their blood pressure has been stable at home and is not having any significant or related problems. There has been no chest pain, chest pressure, soa/ortega. The patient had an elevated blood pressure reading and is to monitor their bp and call with a report if consistently > 140/90. Carcinoma in situ of cervix The patient's [...] and no later then six months. No recent seizures. Pyloric channel ulcer The patient's issue is nearly or completely resolved. There is no further issues or testing desired by them at this time. The patient has family members present who are agreeable with today's plan and have no additional concerns or requests. here.
--- OUTSIDE RECORDS SUMMARY | 2017-02-08 12:55 | XMS REPORT | Referral Summary ---
Author Author [facility] Organization [facility] Address Unknown Phone Unavailable Care Team Providers Care Cemetery Warden Name Role Phone Michael Timmons Primary Care Physician [phone] Encounter VC Date(s): 10/16/16 - 10/16/16 [facility], [address] [place] [id number] Discharge Disposition: 01-Home or Self Care Attending Physician: Zeus Timmons MD Admitting Physician: Zeus Timmons MD Vital Signs Most recent to 1 oldest [Reference Range]: Blood Pressure 148/70 mmHg [90-140/60-90 mmHg] *HI* (10/16/16 1:12 PM) Problem List Condition Effective Dates Status [...] FOR 30 MINUTES, # 12 tabs, eRx: [facility] # [id number], TAKE 1 TABLET BY MOUTH ONCE WEEKLY BEFORE BREAKFAST, ON AN EMPTY STOMACH : REMAIN UPRIG... Start Date: 07/08/16 Status: Ordered Imodium A-D 2 mg, Oral, Diarrhea/Loose Stools, 0 Refill(s) Start Date: 03/30/14 Status: Ordered lisinopril 10 mg oral tablet 10 mg 1 tabs, Oral, Daily, # 90 tabs, 1 Refill(s), Pharmacy: [facility] # [id number], 1 tabs Oral Daily Start Date: 07/09/16 Status: Ordered Melatonin Bedtime (once a day), 0 Refill(s) Start Date: 11/29/14 Status: Ordered Metoprolol Tartrate 50 mg oral tablet See Instructions, TAKE ONE-HALF TABLET BY MOUTH TWO TIMES A DAY WITH FOOD/ PT DUE FOR APPOINTMENT, # 90 tabs, 0 Refill(s), Pharmacy: [facility] #[id number] Start Date: 10/08/16 Status: Ordered multivitamin 1 tabs, Oral, Daily, 0 Refill(s) Start Date: 03/30/14 Status: Ordered Os-John 500 2 tabs, Oral, Daily, 0 Refill(s) Start Date: 03/30/14 Status: Ordered PHENobarbital 32.4 mg oral tablet See Instructions, TAKE 3 TABLETS BY MOUTH EVERY MORNING AND 2 TABLETS IN THE EVENING N [facility], # 450 tabs, 0 Refill(s) Start Date: 07/24/16 Status: Ordered Reclast 5 mg/100 mL intravenous [...] Body Site Bilateral Cataract extraction and insertion 2015 of intraocular lens Left Cataract extraction and [...] colitis - proctoscopy Vaginal hysterectomy 1normal 2anemia 99390 & 2003 Social History Social History Type Response Smoking Status Former smoker; Type: Cigarettes; Tobacco use per day: 1 Pack1 130 pack years Assessment and Plan Extracted from: Title: Ambulatory Patient Education Author: John Guzman RN Date: 10/16/16 Geriatrics Fall Prevention in the Home Falls can cause injuries. They can happen to people of all ages. There are many things you can do to make your home safe and to help prevent falls. WHAT CAN I DO ON THE OUTSIDE OF MY HOME? Regularly fix the edges of walkways and driveways and fix any cracks. Remove anything that might make you trip as you walk through a door, such as a raised step or threshold. Trim any bushes or trees on the path to your home. Use bright outdoor lighting. Clear any walking paths of anything that might make someone trip, such as rocks or tools. Regularly check to see if handrails are loose or broken. Make sure that both sides of any steps have handrails. Any raised decks and porches should have guardrails on the edges. Have any leaves, snow, or ice cleared regularly. Use sand or salt on walking paths during winter. Clean up any spills in your garage right away. This includes oil or grease spills. WHAT CAN I DO IN THE BATHROOM? Use night lights. Install grab bars by the toilet and in the tub and shower. Do not use towel bars as grab bars. Use non-skid mats or decals in the tub or shower. If you need to sit down in the shower, use a plastic, non-slip stool. Keep the floor dry. Clean up any water that spills on the floor as soon as it happens. Remove soap buildup in the tub or shower regularly. Attach bath mats securely with double-sided non-slip rug tape. Do not have throw rugs and other things on the floor that can make you trip. WHAT CAN I DO IN THE BEDROOM? Use night lights. Make sure that you have a light by your bed that is easy to reach. Do not use any sheets or blankets that are too big for your bed. They should not hang down onto the floor. Have a firm chair that has side arms. You can use this for support while you get dressed. Do not have throw rugs and other things on the floor that can make you trip. WHAT CAN I DO IN THE KITCHEN? Clean up any spills right away. Avoid walking on wet floors. Keep items that you use a lot in cnkr-vs-ebvua places. If you need to reach something above you, use a strong step stool that has a grab bar. Keep electrical cords out of the way. Do not use floor korean or wax that makes floors slippery. If you must use wax, use non-skid floor wax. Do not have throw rugs and other things on the floor that can make you trip. WHAT CAN I DO WITH MY STAIRS? Do not leave any items on the stairs. Make sure that there are handrails on both sides of the stairs and use them. Fix handrails that are broken or loose. Make sure that handrails are as long as the stairways. Check any carpeting to make sure that it is firmly attached to the stairs. Fix any carpet that is loose or worn. Avoid having throw rugs at the top or bottom of the stairs. If you do have throw rugs, attach them to the floor with carpet tape. Make sure that you have a light switch at the top of the stairs and the bottom of the stairs. If you do not have them, ask someone to add them for you. WHAT ELSE CAN I DO TO HELP PREVENT FALLS? Wear shoes that: Do not have high heels. Have rubber bottoms. Are comfortable and fit you well. Are closed at the toe. Do not wear sandals. If you use a stepladder: Make sure that it is fully opened. Do not climb a closed stepladder. Make sure that both sides of the stepladder are locked into place. Ask someone to hold it for you, if possible. Clearly john paul and make sure that you can see: Any grab bars or handrails. First and last steps. Where the edge of each step is. Use tools that help you move around (mobility aids) if they are needed. These include: Canes. Walkers. Scooters. Crutches. Turn on the lights when you go into a dark area. Replace any light bulbs as soon as they burn out. Set up your furniture so you have a clear path. Avoid moving your furniture around. If any of your floors are uneven, fix them. If there are any pets around you, be aware of where they are. Review your medicines with your doctor. Some medicines can make you feel dizzy. This can increase your chance of falling. Ask your doctor what other things that you can do to help prevent falls. This information is not intended to replace advice given to you by your health care provider. Make sure you discuss any questions you have with your health care provider. Document Released: 07/19/2010 Document Revised: 02/06/2016 Document Reviewed: [employer] Interactive Patient Education 2016 [employer]. No follow up information was provided.
--- OUTSIDE RECORDS SUMMARY | 2017-02-08 12:55 | XMS REPORT | Referral Summary ---
Author Author [facility] Organization [facility] Address Unknown Phone Unavailable Care Team Providers Care Microsoft Bi Architect Name Role Phone Michael Timmons Primary Care Physician [phone] Encounter VC Date(s): 08/01/16 - 08/01/16 [facility], [address] [place] [id number] Discharge Disposition: 01-Home or Self Care Attending Physician: Zeus Timmons MD Admitting Physician: Zeus Timmons MD Vital Signs Most recent to 1 oldest [Reference Range]: Temperature Tympanic 36.5 degC [36.6-38.1 degC] *LOW* (08/01/16 11:10 AM) Peripheral Pulse 47 bpm Rate [60-100 bpm] *LOW* (08/01/16 11:10 AM) Blood Pressure 130/80 mmHg [90-140/60-90 mmHg] (08/01/16 11:10 AM) SpO2 98 % (08/01/16 11:10 AM) Problem List Condition Effective Dates Status [...] FOR 30 MINUTES, # 12 tabs, eRx: [facility] # [id number], TAKE 1 TABLET BY MOUTH ONCE WEEKLY BEFORE BREAKFAST, ON AN EMPTY STOMACH : REMAIN UPRIG... Start Date: 07/08/16 Status: Ordered Imodium A-D 2 mg, Oral, Diarrhea/Loose Stools, 0 Refill(s) Start Date: 03/30/14 Status: Ordered lisinopril 10 mg oral tablet 10 mg 1 tabs, Oral, Daily, # 90 tabs, 1 Refill(s), Pharmacy: [facility] # [id number], 1 tabs Oral Daily Start Date: 07/09/16 Status: Ordered Melatonin Bedtime (once a day), 0 Refill(s) Start Date: 11/29/14 Status: Ordered Metoprolol Tartrate 50 mg oral tablet See Instructions, TAKE ONE-HALF TABLET BY MOUTH TWO TIMES A DAY WITH FOOD, # 90 tabs, eRx: [facility] #[id number], TAKE ONE-HALF TABLET BY MOUTH TWO TIMES A DAY WITH FOOD Start Date: 07/08/16 Status: Ordered multivitamin 1 tabs, Oral, Daily, 0 Refill(s) Start Date: 03/30/14 Status: Ordered Os-John 500 2 tabs, Oral, Daily, 0 Refill(s) Start Date: 03/30/14 Status: Ordered PHENobarbital 32.4 mg oral tablet See Instructions, TAKE 3 TABLETS BY MOUTH EVERY MORNING AND 2 TABLETS IN THE EVENING N [facility], # 450 tabs, 0 Refill(s) Start Date: [...] colitis - proctoscopy Vaginal hysterectomy 1normal 2anemia 77990 & 2003 Social History Social History Type Response Smoking Status Former smoker; Type: Cigarettes Assessment and Plan No data available for this section
--- OUTSIDE RECORDS SUMMARY | 2017-02-08 12:55 | XMS REPORT | Referral Summary ---
Author Author [facility] Organization [facility] Address Unknown Phone Unavailable Care Team Providers Care Appeals Writer Name Role Phone Morgan Ayala Primary Care Physician [phone] Encounter VC Date(s): 03/29/15 - 03/29/15 [facility] [address] [place] [address] [place] [id number] Discharge Diagnosis: Age related osteoporosis Discharge Diagnosis: [...] FOR 30 MINUTES, # 12 tabs, eRx: [facility] # [id number], TAKE 1 TABLET BY MOUTH ONCE WEEKLY BEFORE BREAKFAST, ON AN EMPTY STOMACH : REMAIN UPRIG... Start Date: 08/08/15 Status: Ordered Imodium A-D 2 mg, Oral, Diarrhea/Loose Stools, 0 Refill(s) Start Date: 03/30/14 Status: Ordered lisinopril 10 mg oral tablet 10 mg 1 tabs, Oral, Daily, # 90 tabs, 1 Refill(s), Pharmacy: [facility] # [id number], 1 tabs Oral Daily Start Date: 07/31/15 Status: Ordered Melatonin Bedtime (once a day), 0 Refill(s) Start Date: 11/29/14 Status: Ordered Metoprolol Tartrate 50 mg oral tablet See Instructions, TAKE ONE-HALF TABLET BY MOUTH TWICE A DAY WITH MEALS, # 90 tabs, eRx: [facility] #[id number], TAKE ONE-HALF TABLET BY MOUTH TWICE A [...] colitis - proctoscopy Vaginal hysterectomy 1normal 2anemia 70265 & 2003 Social History Social History Type [...] 12/14/2012 Document Reviewed: ExitCare Patient Information 2014 [employer]. Follow Up With: Where: When: Parker Ayala [address] [place] [address] Drive; Via [facility] [place] [address] Business (1) Within 3 to 5 days Comments: Extracted from: Title: Office Visit Note Author: Parker Ayala MD Date: 03/29/15 Assessment/Plan Age related osteoporosis She will be due for bone densitometry after July 27, 2015. Essential hypertension Basic metabolic profile will be rechecked. Ordered: Basic Metabolic Panel Seizure disorder She will continue her present medication.
--- OUTSIDE RECORDS SUMMARY | 2017-02-08 12:55 | XMS REPORT | Continuity of Care Document ---
Author Author Lucy SCHWAB, Parker FLORES Organization Ambulatory Address [address] [place] [address] Phone Care Team Providers Care Sole Leveler Name Role Phone Parker Ayala PP Unavailable Payers Payer name Insurance type Covered alliance party ID Authorization(s) Unknown Problems Condition Effective Dates (start - stop) Clinical Status Hypertension, Unspecified - *Chronic Epilepsy, unspecified, without mention of intractable epilepsy - *Chronic Osteoporosis - *Chronic Head contusion - *Acute Concussion - *Acute Hypertension, Benign - *Chronic Cerebrovascular disease - *Chronic Hypertension, Unspecified - *Chronic Epilepsy, unspecified, without mention of intractable epilepsy - *Chronic Osteoporosis - *Chronic Ankle sprain - *Acute Ankle pain, left - *Acute Seizure disorder - *Chronic Hypertension - *Chronic Osteoporosis - *Chronic History of ulcerative colitis - *Resolved History of reactive hypoglycemia - Episodic History of compression fracture of vertebral colum - *Chronic Noninfectious Gastroenteritis - *Acute Hypertension, Benign - *Chronic Epilepsy, unspecified, without mention of intractable epilepsy - *Chronic Small bowel obstruction due to postoperative adhes - *Resolved Hypertension, Unspecified - *Chronic Epilepsy, unspecified, without mention of intractable epilepsy - *Chronic Osteoporosis - *Chronic Medicare annual wellness visit, initial - *Acute Hypertension, Unspecified - *Chronic Osteoporosis - *Chronic Seizure disorder - *Resolved History of GI Bleeding - *Resolved Family History Family Member Diagnosis Age At Onset Status Mother (Unknown) Alive and well (Unknown) Father (Alive) Cancer, lung (cause of ) Yes Sister (Unknown) Alive and well (Unknown) Brother (Unknown) Alive and well (Unknown) Social History Social History Element Description Quantity Unknown Allergies, Adverse Reactions, Alerts Substance Reaction Severity Status ASPIRIN COLON BLEEDING moderate to severe ASPIRIN ULCERITIVE COLITIS PER DR ZUNIGA moderate to severe Medications Medication Instructions Dosage Effective Dates (start - stop) Status 2 TABS DAILY - Active multivitamin capsule take 1 TAB DAILY - Active Imodium A-D 2 mg tablet take 2 tablet (4MG) by oral route after 1st loose stool and 1 tablet (2 mg) after each next bowel movement; do not exceed 16 mg in 24hrs 4 MG - Active metoprolol tartrate 50 mg tablet take 0.5 Tablet (25MG) by oral route 2 times every day with meals 25 MG - Active amitriptyline 10 mg tablet take 1 tablet (10MG) by oral route 3 times every day 10 MG - Active phenobarbital 32.4 mg tablet take 3 Tablet (97.2MG) by oral route every morning and 2 tablets in the evening. 97.2 MG - Active lisinopril 20 mg-hydrochlorothiazide 25 mg tablet take 0.5 Tablet by oral route every day 0 - Active Fosamax 70 mg tablet take 1 tablet (70MG) by oral route every week in the morning, at least 30 min before first food, beverage, or medication of day 70 MG - Active Immunizations Vaccine Date Status Comments Flu (split) (3 yrs or older) completed Pneumo (2 yrs or older)(PPV) completed Results Test Name Date and Time Measure Units Reference Range Abnormal Flag Comments Unknown Vital Signs Date / Time: Height Weight Pulse Rate Blood Pressure Temperature /08:37:00 59.50 in 116.00 lbs 74 /min 126/86 mm[Hg] 98.4 F Procedures Procedure Date Unknown Encounters Encounter Location Date Patient Visit [facility] Patient Visit [facility] New Patient Visit [facility] New Patient Visit [facility] New Patient Visit [facility] New Patient Visit [facility] New Patient Visit [facility] New Patient Visit [facility] New Patient Visit [facility] New Patient Visit [facility] New Patient Visit [facility] New Patient Visit [facility] New Patient Visit [facility] New Advance Directives Directive Effective Date Unknown
--- OUTSIDE RECORDS SUMMARY | 2017-02-08 12:55 | XMS REPORT | Referral Summary ---
Author Author [facility] Organization [facility] Address Unknown Phone Unavailable Care Team Providers Care Hospitality Coordinator Name Role Phone Michael Timmons Primary Care Physician [phone] Encounter VC Date(s): 04/17/16 - 04/17/16 [facility], [address] [place] [id number] Discharge Disposition: 01-Home or Self Care Attending Physician: Zeus Timmons MD Admitting Physician: Zeus Timmons MD Vital Signs Most recent to 1 oldest [Reference Range]: Blood Pressure 110/60 mmHg [90-140/60-90 mmHg] (04/17/16 1:15 PM) Problem List Condition Effective Dates Status [...] MINUTES, # 12 tabs, 1 Refill(s), Pharmacy: [facility] #[id number], TAKE 1 TABLET BY MOUTH ONCE WEEKLY BEFORE BREAKFAST, ON AN EMPTY STO... Start Date: 10/18/15 Status: Ordered Imodium A-D 2 mg, Oral, Diarrhea/Loose Stools, 0 Refill(s) Start Date: 03/30/14 Status: Ordered lisinopril 10 mg oral tablet 10 mg 1 tabs, Oral, Daily, # 90 tabs, 1 Refill(s), Pharmacy: [facility] # [id number], 1 tabs Oral Daily Start Date: 07/31/15 Status: Ordered Melatonin Bedtime (once a day), 0 Refill(s) Start Date: 11/29/14 Status: Ordered Metoprolol Tartrate 50 mg oral tablet See Instructions, TAKE ONE-HALF TABLET BY MOUTH TWO TIMES A DAY WITH FOOD, # 90 tabs, eRx: [facility] #[id number], TAKE ONE-HALF TABLET BY MOUTH TWO TIMES A DAY WITH FOOD Start Date: 04/10/16 Status: Ordered multivitamin 1 tabs, Oral, Daily, 0 Refill(s) Start Date: 03/30/14 Status: Ordered Os-John 500 2 tabs, Oral, Daily, 0 Refill(s) Start Date: 03/30/14 Status: Ordered PHENobarbital 32.4 mg oral tablet See Instructions, TAKE 3 TABLETS BY MOUTH EVERY MORNING AND 2 TABLETS IN THE EVENING, # 450 tabs, 0 Refill(s) Start Date: 10/24/15 Status: Ordered Results Hematology Most recent to 1 oldest [Reference Range]: WBC [4.8-10.8 5.2 10*3/uL 10*3/uL] (04/17/16 2:00 PM) RBC [4.00-5.20] 4.34 (04/17/16 2:00 PM) Hgb [12.0-16.0 13.9 gm/dL gm/dL] (04/17/16 2:00 PM) Hct [37.0-47.0 %] 41.3 % (04/17/16 2:00 PM) MCV [82.0-99.0 fL] 95.2 fL (04/17/16 2:00 PM) MCH [27.0-32.0 pg] 32.0 pg (04/17/16 2:00 PM) MCHC [32.0-36.0 33.7 gm/dL gm/dL] (04/17/16 2:00 PM) RDW [11.5-14.5 %] 12.6 % (04/17/16 2:00 PM) Platelet [150-400 272 10*3/uL 10*3/uL] (04/17/16 2:00 PM) MPV [8.8-14.8 fL] 11.0 fL (04/17/16 2:00 PM) Immature 0.0 % Granulocytes (04/17/16 2:00 PM) [0.0-1.0 %] Neutrophils [51-75 47 % %] *LOW* (04/17/16 2:00 PM) Lymphocytes [20-46 34 % %] (04/17/16 2:00 PM) Monocytes [4-11 %] 13 % *HI* (04/17/16 2:00 PM) Eosinophils [0-4 %] 5 % *HI* (04/17/16 2:00 PM) Basophils [0-2 %] 1 % (04/17/16 2:00 PM) Neutro Absolute 2.44 10*3 [1.90-7.00 10*3] (04/17/16 2:00 PM) Lymph Absolute 1.80 10*3 [0.80-3.30 10*3] (04/17/16 2:00 PM) [place] Absolute 0.67 10*3 [0.30-1.00 10*3] (04/17/16 2:00 PM) Eos Absolute 0.28 10*3 [0.00-0.50 10*3] (04/17/16 2:00 PM) Baso Absolute 0.04 10*3 [0.00-0.20 10*3] (04/17/16 2:00 PM) Chemistry Most recent to 1 oldest [Reference Range]: Sodium Lvl [135-144 141 mEq/L mEq/L] (04/17/16 2:00 PM) Potassium Lvl 4.5 mEq/L [3.5-5.2 mEq/L] (04/17/16 2:00 PM) Chloride [99-111 105 mEq/L mEq/L] (04/17/16 2:00 PM) CO2 [22-31 mEq/L] 28 mEq/L (04/17/16 2:00 PM) AGAP [3-20] 8 (04/17/16 2:00 PM) BUN [10-20 mg/dL] 17 mg/dL (04/17/16 2:00 PM) Glucose Lvl [70-99 99 mg/dL mg/dL] (04/17/16 2:00 PM) Creatinine Lvl 0.79 mg/dL [0.57-1.11 mg/dL] (04/17/16 2:00 PM) eGFR [>60 mL/min] >60 mL/min 1 (04/17/16 2:00 PM) Calcium Lvl 9.8 mg/dL [8.9-10.5 mg/dL] (04/17/16 2:00 PM) Albumin Lvl [3.4-4.8 4.5 gm/dL gm/dL] (04/17/16 2:00 PM) Total Protein 7.2 gm/dL 2 [6.0-7.6 gm/dL] (04/17/16 2:00 PM) Globulin [1.8-4.0 2.7 gm/dL gm/dL] (04/17/16 2:00 PM) ALT [0-55 U/L] 14 U/L (04/17/16 2:00 PM) AST [5-34 U/L] 17 U/L (04/17/16 2:00 PM) Alk Phos [40-150 66 U/L U/L] (04/17/16 2:00 PM) Bili Total [0.2-1.2 0.2 mg/dL mg/dL] (04/17/16 2:00 PM) TSH with Reflex Free 0.49 T4 [0.35-4.94] (04/17/16 12:01 AM) 1Result Comment: Multiply eGFR results by 1.21 for race. 2Result Comment: Please note new reference range for adult Protein. Immunizations Vaccine Date Refusal Reason influenza virus [...] 10/06/91 Gastroduodenostomy - Bilroth 1 10/06/91 Vagotomy 1/1/92 Biopsy of breast - LT Bone marrow aspiration Bone marrow biopsy BSO - Bilateral salpingo-oophorectomy Esophagogastroduodenoscopy X23 Intraoral - sialithotomy Sigmoidoscopy=proctitis Surgery - RT. thumb Tonsillectomy Ulcerative colitis - proctoscopy Vaginal hysterectomy 1normal 2anemia 55414 & 2003 Social History Social History Type Response Smoking Status Former smoker; Type: Cigarettes Assessment and Plan Extracted from: Title: Ambulatory Patient Education Author: Zeus Timmons MD Date: Family [facility] Epilepsy Epilepsy is a disorder in which a person has repeated seizures over time. A seizure is a release of abnormal electrical activity in the brain. Seizures can cause a change in attention, behavior, or the ability to remain awake and alert (altered mental status). Seizures often involve uncontrollable shaking ( convulsions). Most people with epilepsy lead normal lives. However, people with epilepsy are at an increased risk of falls, accidents, and injuries. Therefore, it is important to begin treatment right away. CAUSES Epilepsy has many possible causes. Anything that disturbs the normal pattern of brain cell activity can lead to seizures. This may include: Head injury. trauma. High fever as a child. Stroke. Bleeding into or around the brain. Certain drugs. Prolonged low oxygen, such as what occurs after CPR efforts. Abnormal brain development. Certain illnesses, such as meningitis, encephalitis (brain infection), malaria, and other infections. An imbalance of nerve signaling chemicals (neurotransmitters). SIGNS AND SYMPTOMS The symptoms of a seizure can vary greatly from one person to another. Right before a seizure, you may have a warning (aura) that a seizure is about to occur. An aura may include the following symptoms: Fear or anxiety. Nausea. Feeling like the room is spinning (vertigo). Vision changes, such as seeing flashing lights or spots. Common symptoms during a seizure include: Abnormal sensations, such as an abnormal smell or a bitter taste in the mouth. Sudden, general body stiffness. Convulsions that involve rhythmic jerking of the face, arm, or leg on one or both sides. Sudden change in consciousness. Appearing to be awake but not responding. Appearing to be asleep but cannot be awakened. Grimacing, chewing, lip smacking, drooling, tongue biting, or loss of bowel or bladder control. After a seizure, you may feel sleepy for a while. DIAGNOSIS Your health care provider will ask about your symptoms and take a medical history. Descriptions from any witnesses to your seizures will be very helpful in the diagnosis. A physical exam, including a detailed neurological exam, is necessary. Various tests may be done, such as: An electroencephalogram (EEG). This is a painless test of your brain waves. In this test, a diagram is created of your brain waves. These diagrams can be interpreted by a specialist. An MRI of the brain. A CT scan of the brain. A spinal tap (lumbar puncture, LP). Blood tests to check for signs of infection or abnormal blood chemistry. TREATMENT There is no cure for epilepsy, but it is generally treatable. Once epilepsy is diagnosed, it is important to begin treatment as soon as possible. For most people with epilepsy, seizures can be controlled with medicines. The following may also be used: A pacemaker for the brain (vagus nerve stimulator) can be used for people with seizures that are not well controlled by medicine. Surgery on the brain. For some people, epilepsy eventually goes away. HOME CARE INSTRUCTIONS Follow your health care provider's recommendations on driving and safety in normal activities. Get enough rest. Lack of sleep can cause seizures. Only take pcbz-esf-bjwzhhy or prescription medicines as directed by your health care provider. Take any prescribed medicine exactly as directed. Avoid any known triggers of your seizures. Keep a seizure diary. Record what you recall about any seizure, especially any possible trigger. Make sure the people you live and work with know that you are prone to seizures. They should receive instructions on how to help you. In general, a witness to a seizure should: Cushion your head and body. Turn you on your side. Avoid unnecessarily restraining you. Not place anything inside your mouth. Call for emergency medical help if there is any question about what has occurred. Follow up with your health care provider as directed. You may need regular blood tests to monitor the levels of your medicine. SEEK MEDICAL CARE IF: You develop signs of infection or other illness. This might increase the risk of a seizure. You seem to be having more frequent seizures. Your seizure pattern is changing. SEEK IMMEDIATE MEDICAL CARE IF: You have a seizure that does not stop after a few moments. You have a seizure that causes any difficulty in breathing. You have a seizure that results in a very severe headache. You have a seizure that leaves you with the inability to speak or use a part of your body. This information is not intended to replace advice given to you by your health care provider. Make sure you discuss any questions you have with your health care provider. Document Released: 09/22/2006 Document Revised: 07/13/2014 Document Reviewed: ExitCare Patient Information 2016 [employer]. No follow up information was provided. Extracted from: Title: Office Visit Note Author: Zeus Timmons MD Date: 04/17/16 Assessment/Plan Adult idiopathic generalized osteoporosis This issue was reviewed, appears stable, and current therapy continued except as mentioned. Appropriate lab was reviewed from the most recent appropriate entry and lab was ordered if needed in the cpoe/nursing orders, and follow up recommended generally in 90 days and no later then six months. Please make the medication adjustments we discussed. Please notify the office for any difficulties or concerns. Stop alendronate and change to reclast once per year ifapproved by insurance. The patient has family members present who are agreeable with today's plan and have no additional concerns or requests. here. DXA test results for Mrs. Antionette White performed on 08/15/2015 The Right femoral neck showed the lowest score of all the areas scanned. The Right femoral neck has a T-score of -4.80 , 37.00 % of a young adult. The diagnosis is OSTEOPOROSIS. [1] Benign essential hypertension This issue was reviewed, [...] been no chest pain, chest pressure, soa/ortega. Refill meds. Carcinoma in situ of cervix The patient's [...]
--- OUTSIDE RECORDS SUMMARY | 2017-02-08 12:56 | XMS REPORT | Continuity of Care Document ---
Author Author [facility] Organization [facility] Address Unknown Phone Unavailable Allergies Medications Problems Procedures Results Encounters ACCT No. Visit Date/Time Discharge Status Pt. Type Provider Facility Loc./Unit Complaint [id number] 11/23/2013 08:37:00 11/23/2013 23 :59:59 CLS Outpatient
--- OUTSIDE RECORDS SUMMARY | 2017-02-08 12:56 | XMS REPORT | Referral Summary ---
Author Author [facility] Organization [facility] Address Unknown Phone Unavailable Care Team Providers Care Internet Marketing Assistant Name Role Phone Morgan Ayala Primary Care Physician [phone] Encounter VC Date(s): 03/29/15 - 03/29/15 [facility] [address] [place] [address] [place] [id number] Discharge Diagnosis: Age related osteoporosis Discharge [...] FOR 30 MINUTES, # 12 tabs, eRx: [facility] # [id number], TAKE 1 TABLET BY MOUTH ONCE WEEKLY BEFORE BREAKFAST, ON AN EMPTY STOMACH : REMAIN UPRIG... Start Date: 08/08/15 Status: Ordered Imodium A-D 2 mg, Oral, Diarrhea/Loose Stools, 0 Refill(s) Start Date: 03/30/14 Status: Ordered lisinopril 10 mg oral tablet 10 mg 1 tabs, Oral, Daily, # 90 tabs, 1 Refill(s), Pharmacy: [facility] # [id number], 1 tabs Oral Daily Start Date: 07/31/15 Status: Ordered Melatonin Bedtime (once a day), 0 Refill(s) Start Date: 11/29/14 Status: Ordered Metoprolol Tartrate 50 mg oral tablet See Instructions, TAKE ONE-HALF TABLET BY MOUTH TWICE A DAY WITH MEALS, # 90 tabs, eRx: [facility] #[id number], TAKE ONE-HALF TABLET BY MOUTH TWICE A [...] colitis - proctoscopy Vaginal hysterectomy 1normal 2anemia 70763 & 2003 Social History Social History Type [...] 12/14/2012 Document Reviewed: ExitCare Patient Information 2014 [employer]. Follow Up With: Where: When: Parker Ayala [address] [place] [address] Drive; Via [facility] [place] [id number] Business (1) Within 3 to 5 days Comments: Extracted from: Title: Office Visit Note Author: Parker Ayala MD Date: 03/29/15 Assessment/Plan Age related osteoporosis She will be due for bone densitometry after July 27, 2015. Essential hypertension Basic metabolic profile will be rechecked. Ordered: Basic Metabolic Panel Seizure disorder She will continue her present medication.
--- OUTSIDE RECORDS SUMMARY | 2017-02-08 12:56 | XMS REPORT | Referral Summary ---
Author Author [facility] Organization [facility] Address Unknown Phone Unavailable Care Team Providers Care Keymodule Assembly Supervisor Name Role Phone Morgan Ayala Primary Care Physician [phone] Encounter VC Date(s): 03/29/15 - 03/29/15 [facility] [address] [place] [address] [place] [id number] Discharge Diagnosis: Age related osteoporosis Discharge Diagnosis: [...] BLEEDING Severe Active ULCERITIVE COLITIS PER DR ZNUIGA Medications Fosamax 70 mg oral tablet See Instructions, TAKE 1 TABLET BY MOUTH ONCE WEEKLY BEFORE BREAKFAST, ON AN EMPTY STOMACH: REMAIN UPRIGHT FOR 30 MINUTES, # 12 tabs, eRx: [facility] # [id number], TAKE 1 TABLET BY MOUTH ONCE WEEKLY BEFORE BREAKFAST, ON AN EMPTY STOMACH : REMAIN UPRIG... Start Date: 08/08/15 Status: Ordered Imodium A-D 2 mg, Oral, Diarrhea/Loose Stools, 0 Refill(s) Start Date: 03/30/14 Status: Ordered lisinopril 10 mg oral tablet 10 mg 1 tabs, Oral, Daily, # 90 tabs, 1 Refill(s), Pharmacy: [facility] # [id number], 1 tabs Oral Daily Start Date: 07/31/15 Status: Ordered Melatonin Bedtime (once a day), 0 Refill(s) Start Date: 11/29/14 Status: Ordered Metoprolol Tartrate 50 mg oral tablet See Instructions, TAKE ONE-HALF TABLET BY MOUTH TWICE A DAY WITH MEALS, # 90 tabs, eRx: [facility] #[id number], TAKE ONE-HALF TABLET BY MOUTH TWICE A [...] colitis - proctoscopy Vaginal hysterectomy 1normal 2anemia 78813 & 2003 Social History Social History Type [...] 12/14/2012 Document Reviewed: ExitCare Patient Information 2014 [employer]. Follow Up With: Where: When: Parker Ayala [address] [place] [address] Drive; Via [facility] [place] [address] Business (1) Within 3 to 5 days Comments: Extracted from: Title: Office Visit Note Author: Parker Ayala MD Date: 03/29/15 Assessment/Plan Age related osteoporosis She will be due for bone densitometry after July 27, 2015. Essential hypertension Basic metabolic profile will be rechecked. Ordered: Basic Metabolic Panel Seizure disorder She will continue her present medication.
[2017-02-08] MEDS ORDERED: NORMAL SALINE 1,000 ML IV ONE (13:09)
--- OUTSIDE RECORDS SUMMARY | 2017-02-08 13:22 | XMS REPORT | Continuity of Care Document ---
Author Author [facility] Organization [facility] Address Unknown Phone Unavailable Allergies Medications Problems Procedures Results Encounters ACCT No. Visit Date/Time Discharge Status Pt. Type Provider Facility Loc./Unit Complaint [id number] 11/23/2013 08:37:00 11/23/2013 23 :59:59 CLS Outpatient
[2017-02-08 13:34] LABS: BASOPHILS # (AUTO) 0.1 T/MM3 (0-0.2); BASOPHILS % (AUTO) 0.9 % (0-2); EOSINOPHILS # (AUTO) 0.4 T/MM3 (0-0.5); EOSINOPHILS % (AUTO) 6.3 % (0-4); HCT - HEMATOCRIT 41.6 % (36-46); HGB - HEMOGLOBIN 14.1 GM/DL (12-16); IMMATURE GRANULOCYTE # (AUTO) 0.01 T/MM3 (0.00-0.03); IMMATURE GRANULOCYTE % (AUTO) 0.2 % (0.0-0.5); LYMPHOCYTES # (AUTO) 1.6 T/MM3 (1-4.8); LYMPHOCYTES % (AUTO) 29.1 % (23-45); MEAN CORPUSCULAR HGB 33.7 UUG (26-34); MEAN CORPUSCULAR HGB CONC(MCHC 33.9 GM/DL (31-37); MEAN CORPUSCULAR VOLUME 99.3 UM3 (80-100); MEAN PLATELET VOLUME 10.5 UM3 (9.4-12.4); MONOCYTES # (AUTO) 0.6 T/MM3 (0-0.8); NEUTROPHILS #(AUTO)-ABSOLUTE 2.9 T/MM3 (1.8-7.7); NEUTROPHILS % (AUTO) 52.5 % (33-66); RED BLOOD COUNT 4.19 M/MM3 (4.00-5.20); WBC - WHITE BLOOD COUNT 5.6 T/MM3 (4.5-11.0)
--- NOTE | 2017-02-08 13:38 | NUR ---
CT PT TO CT BY CART AT THIS TIME.
[2017-02-08 13:41] LABS: INR 1.06 (0.76-1.04); PROTHROMBIN TIME 11.6 SEC (9.31-12.49); PTT 27.6 SEC (24-36)
[2017-02-08 13:44] LABS: ALBUMIN 4.6 G/DL (3.5-5.0); ALBUMIN/GLOBULIN RATIO 1.8 RATIO (1.1-2.2); ALKALINE PHOSPHATASE 62 U/L (38-126); ALT (SGPT) 30 U/L (9-52); ANION GAP 12 MEQ/L (5-15); AST (SGOT) 21 U/L (14-36); BUN/CREATININE RATIO 21 RATIO (6-26); CALCIUM 9.6 MG/DL (8.4-10.2); CHLORIDE 104 MEQ/L (98-107); CO2 - CARBON DIOXIDE 27 MEQ/L (22-30); CREATININE 0.7 MG/DL (0.7-1.2); GLOMERULAR FILTRATION RATE 82; GLUCOSE 104 MG/DL (65-110); POTASSIUM 4.7 MEQ/L (3.6-5); SODIUM 143 MEQ/L (134-144); TOTAL PROTEIN 7.2 G/DL (6.3-8.2)
--- NOTE | 2017-02-08 13:47 | NUR ---
RETURN PT RETURNED FROM CT BY CART AT THIS TIME.
--- NOTE | 2017-02-08 14:10 | ERPDOC ---
Departure Disposition Decision Date: February 08, 2017 Disposition Decision Time: 15:51 Disposition: 02 TO [facility] Impression Impression Impression: Primary Impression: Dysarthria Severity: Moderate Condition: Stable Seen By: Physician only Referrals: SAVANNAH OSPINA MD (Family) Problems/Meds/Labs Reviewed?: Yes Medications reviewed and manag: Yes Follow up care ordered?: Yes Mental Status: Alert, Oriented HPI - CVA/Neuro General Chief Complaint: Neuro Symptoms/Deficits Stated Complaint: POSS TIA Time Seen by Provider: 13:09 Source: patient, family Exam Limitations: no limitations HPI - CVA/NEURO Initial Comments 76yo woman presented to the ER tonight for concerns for CVA. Pt's granddaughter spoke with pt around 1100 and was concerned that her speech was slurred. had not seen pt all morning, so unable to provide a timeline for pts sx. Pt denies h/o CVA/TIA. Occurred At: home Onset/Timing: Rapid Duration: 6-12 hrs Severity: moderate Associated Symptoms: slurred speech Hx of Similar Symptoms: No Affected Areas/Deficit Locatio: Speech Allergies: Coded Allergies: aspirin (Verified Allergy, Unknown, COLON PROBLEMS, 10/06/13) Past History Past Medical History Metabolic: cancer, hypertension GI: gallbladder disease, ulcerative colitis, ulcers Neurological: seizures Psychological: depression Surgical History General: EGD, appendix, back, colonoscopy, exploratory laparotomy, gallbladder , other, tonsils Reproductive/: hysterectomy, other Joint: other Family History Family PMH: FOUND: hypertension Vaccines Hx Influenza Vaccination: Yes (Aug 2013) Hx Pneumococcal Vaccination: No Hx Tetanus Diptheria: Yes (07/23/11) Review of Systems ENMT Mouth/Throat: other (Slurred speech) All other Systems All Other Systems: Reviewed and Negative Physical Exam General General Nourishment: well nourished, well developed, appears stated age, no acute distress, adult General Body Habitus: well groomed Vitals and Pain First Documented Vital Signs Date Time Temp Pulse Resp B/P Pulse Ox O2 Delivery O2 Flow Rate FiO2 02/08/17 13:04 97.3 60 20 147/80 95 Room Air Weight: Kilograms: 59.880 Height (feet): 5 Height (inches): 1.00 Triage Pain Scale: RN VS reviewed by Provider: Yes Normal Exams: Head: Normocephalic w/o trauma Eyes: Pupils are PERRLA w/ EOMI, No scleral icterus, irritation ENMT: No facial trauma, nasal exudates, pharyngeal erythema Neck: Full range of motion, without adenopathy, JVD Chest/Resp: Clear all maldonado, with good airflow, and symmetry bilaterally CV: Regular rate and rhythm, without murmur or gallop, Pulses 2+ all extremities Abdomen: Bowel sounds positive, soft, non-tender, non-distended Lymphatic: No lymphadenopathy Musculoskeletal: No tenderness, or deformity noted Integumentary: No rashes, hives, or bruising noted Neurologic: Patient is alert, and oriented Psychiatric: Patient exhibits, appropriate attention Neurologic (brief) Neurological Brief: FOUND: CN w/o gross def to obs, DTR 2/4 all extremities, gait w/o gross def to obs, motor-no gross deficits, sensory-no gross deficits, NOT FOUND: Babinski Psychiatric (brief) Psychiatric Brief: FOUND: alert, normal affect, oriented Differential Diagnoses Considering: Thrombotic CVA, Hemorrhagic CVA, Delirium, DKA, Hypo/hypercalcemia , Hypo/hyperglycemia, Hypo/hypernatremia, Neuropathy, Psychogenic, TIA Progress Results/Orders Orders Procedure Category Date Status Time Oxygen Administration EDM 02/08/17 Transmitted 13:09 Iv Lock (Ed Only) EDM 02/08/17 Transmitted 13:09 Bgm (Ed) EDM 02/08/17 Transmitted 13:09 Nothing By Mouth (Ed EDM 02/08/17 Transmitted Only) 13:09 Cbc W/Auto LAB 02/08/17 Complete Diff-Reflex Manual 13:09 Cmp - Comprehensive LAB 02/08/17 Complete Metabolic 13:09 Troponin I W LAB 02/08/17 Complete Hemolysis Index 13:09 INR LAB 02/08/17 Complete 13:09 PTT LAB 02/08/17 Complete 13:09 EKG EKG 02/08/17 Taken 13:09 Ct Head W/O Contrast CT 02/08/17 Taken 13:09 Normal Saline (Normal PHA 02/08/17 Complete Saline Iv) 13:09 Elevate Hob PILAR 02/08/17 In Process 13:09 Measure Vital Signs PILAR 02/08/17 In Process 13:09 Ua, Dip Wreflex LAB 02/08/17 Complete [employer] 14:06 Place In Facility: ED ADM 02/08/17 Transmitted Lab Results Laboratory Tests Test 02/08/17 12:58 02/08/17 13:24 02/08/17 14:28 Glucometer 104mg/dL White Blood Count 5.6T/MM3 Red Blood Count 4.19M/MM3 Hemoglobin 14.1GM/DL Hematocrit 41.6% Mean Corpuscular Volume 99.3UM3 Mean Corpuscular Hemoglobin 33.7UUG Mean Corpuscular Hemoglobin Concent 33.9GM/DL RDW Standard Deviation 42.6FL Platelet Count 241T/MM3 Mean Platelet Volume 10.5UM3 Immature Granulocyte % (Auto) 0.2% Neutrophils (%) (Auto) 52.5% Lymphocytes (%) (Auto) 29.1% Monocytes (%) (Auto) 11.0% Eosinophils (%) (Auto) 6.3% Basophils (%) (Auto) 0.9% Absolute Immature Granulocyte (auto 0.01T/MM3 Absolute Neutrophils (auto) 2.9T/MM3 Absolute Lymphocytes (auto) 1.6T/MM3 Absolute Monocytes (auto) 0.6T/MM3 Absolute Eosinophils (auto) 0.4T/MM3 Absolute Basophils (auto) 0.1T/MM3 Prothromb Time International Ratio 1.06 Activated Partial Thromboplast Time 27.6SEC Turbidity < 20 Sodium Level 143MEQ/L Potassium Level 4.7MEQ/L Chloride Level 104MEQ/L Carbon Dioxide Level 27MEQ/L Anion Gap 12MEQ/L Blood Urea Nitrogen 15.0MG/DL Creatinine 0.7MG/DL Glomerular Filtration Rate Calc 82 BUN/Creatinine Ratio 21RATIO Glucose Level 104MG/DL Calculated Osmolality 276MOSM/KG Calcium Level 9.6MG/DL Total Bilirubin 0.40MG/DL Icterus Index < 2 Aspartate Amino Transf (AST/SGOT) 21U/L Alanine Aminotransferase (ALT/SGPT) 30U/L Alkaline Phosphatase 62U/L Troponin I < 0.012ng/ml Total Protein 7.2G/DL Albumin 4.6G/DL Globulin 2.6G/DL Albumin/Globulin Ratio 1.8RATIO Chemistry Specimen Hemolysis < 15 Urine Collection Type Cleancatch-midstream Urine Color Yellow Urine Turbidity Clear Urine pH 7.0 Urine Specific [place] <=1.005 Urine Protein Negative Urine Glucose (UA) Negative Urine Ketones Negative Urine Blood Negative Urine Nitrite Negative Urine Bilirubin Negative Urine Urobilinogen 0.2EU/DL Urine Leukocyte Esterase Trace Urinalysis Comment Microscopic not ind. Medications Current ED Medications Sodium Chloride (Normal Saline IV) 1,000 ml @ 0 mls/hr Q0M ONCE IV Last administered on 02/08/17t 13:52; Start 02/08/17 at 13:09; Stop 02/08/17 at 13:10; Status DC EKG EKG : Rate: <60 Rhythm: sinus [place]: left QRS: normal Intervals: normal ST/T: normal Interpreted by: signing physician Consult/PCP Consult/PCP : Physician Contacted: Dr. Duque Time Called: 14:15 Time of first response: 14:15 Type of discussion: Admit Discussion/PCP Discussion Details Will admit, as long as pt knows that there is no in-house neuro on the weekend. CT CT : CT: Head no contrast Interpretation: Abnormal (Atrophic brain), Reviewed Written Report NIH Stroke Scale NIH Stroke Scale : NIH Stroke Scale Interval: Baseline Level of Conciousness: (0)Alert LOC Questions: (0)Answers both correct LOC Commands: (0)Performs tasks correct Best Gaze: (0)Normal Visual: (0)No visual loss Facial Palsy: (0)Normal Motor Arm Right: (0)No drift Motor Arm Left: (0)No drift Motor Leg Right: (0)No drift Motor Leg Left: (0)No drift Limb Ataxia: (0)Absent Sensory: (0)Normal Best Language: (0)No aphasia Dysarthria: (1)Mild-mod dysarthria Extinction and Inattention: (0)No abnormality MARTI CARREON DO February 08, 2017 14:10
--- NOTE | 2017-02-08 14:27 | NUR ---
PROVIDER DR. CARREON AT BEDSIDE TO SPEAK WITH PT AND FAMILY.
[2017-02-08 14:35] LABS: BLOOD, URINE NEGATIVE (NEGATIVE); COLOR,URINE YELLOW (YELLOW); LEUKOCYTE ESTERASE ,URINE TRACE (NEGATIVE); NITRITE,URINE NEGATIVE (NEGATIVE); UROBILINOGEN,URINE 0.2 EU/DL (NORMAL)
[2017-02-08] MEDS ORDERED: LISI10TA7 PO (14:42)
--- NOTE | 2017-02-08 14:43 | NUR ---
REPORT CALLED TO ELDER LUCIANO ON MEDICAL UNIT. DENIES QUESTIONS.
--- OUTSIDE RECORDS SUMMARY | 2017-02-08 14:43 | XMS REPORT | Continuity of Care Document ---
Author Author [facility] Organization [facility] Address Unknown Phone Unavailable Allergies Medications Problems Procedures Results Encounters ACCT No. Visit Date/Time Discharge Status Pt. Type Provider Facility Loc./Unit Complaint [id number] 11/23/2013 08:37:00 11/23/2013 23 :59:59 CLS Outpatient
[2017-02-08] MEDS ORDERED: MELA3TAB30 PO (14:47)
[2017-02-08] MEDS ORDERED: ZOLE5INF (14:47)
[2017-02-08] MEDS ORDERED: METO50TA5 PO (14:47)
--- NOTE | 2017-02-08 14:49 | NUR ---
PROVIDER Jese CONNOR APRN AT BEDSIDE.
--- NOTE | 2017-02-08 15:05 | NUR ---
ADMIT PT ADMITTED TO ROOM 143. PT A&OX3. SEEMS SOMEWHAT FORGETFUL. FAMILY PRESENT. TRANSFERS TO BED WITH 1 ASSIST.
[2017-02-08 15:09] VITALS: BP 143/65; PULSE 59; RESP 18; TEMP 97.5; O2SAT 93
[2017-02-08 15:10] VITALS: Ht 154.9 cm; Wt 58.1 kg
[2017-02-08 15:27] VITALS: BP 130/65; PULSE 54; RESP 16; O2SAT 98
[2017-02-08 15:47] VITALS: BP 141/71; PULSE 57; RESP 16; O2SAT 97
[2017-02-08 16:09] VITALS: BP 142/72; PULSE 61; RESP 18; O2SAT 98
--- NOTE | 2017-02-08 16:13 | HPPDOC ---
KAY CONNOR SITE COORDINATOR 02/08/17 1520: HPI - Adult Date DATE: 02/08/17 TIME: 15:11 General Chief Complaint: slurred speech History of Present Illness Tanya Little is a 76 y/o lady who woke up around 0900 in the morning of 02/08/17 in her typical state of health. She spoke with her daughter on the phone around 1100, and her daughter became concerned b/c she had slurred speech. Her family brought her to [facility] for further evaluation. Stroke w/u was ordered - NIH was 1 , CT was neg for acute stroke or bleed, labs were unremarkable. UA was negative for UTI. EKG showed sinus renetta with left axis deviation and trop was negative. No CN deficits were noted in the ED. Given her neuro symptoms, the patient was admitted to observation status for further evaluation. Mrs. Little was seen while still in the ED. She denies any recent health issues - no fever, chills, cough or congestion, dysphagia, sore throat, headaches, visual changes, chest pain or dyspnea, abdominal pain, nausea or vomiting, constipation (has a hx of loose stools), dysuria or frequency, leg swelling, rashes, paresthesias or unilateral weakness. She stated that her family noticed a little bit of drooping to the left side of her face - her smile looks different. She was told by one of her doctors not to take aspirin because of a GI bleed - but this was a very long time ago. She denies being allergic to it. In fact, she tried taking it for a week with her , and she denies having any side effects; but she didn't want to continue to take it if her doctor told her not to. Past Medical History Past Medical History Patient's Medical History: (1) Hypertension (2) Osteoporosis (3) Ulcerative colitis Onset Date: ~ 10/06/1979 (4) Epilepsy (5) Hyponatremia (6) Carcinoma in situ of cervix Surgical History Patient's Surgical History: Cataract extraction and insertion of intraocular lens 2014 Exploratory laparotomy, lysis of intra-abdominal adhesions, 10/07/13, Dr. Bonilla Colonoscopy 09/17/2011: Internal hemorrhoids Colonoscopies in 2007 2002. ERCP 2002. Vertebral plasty 2002. Appendectomy 1981 Cholecystectomy 1991 Gastroduodenostomy 1991. Vagotomy 1991. Breast biopsy. Bone marrow aspiration. Bone marrow biopsy. Bilateral salpingo-oophorectomy. EGD. Tonsillectomy. Vaginal hysterectomy Current Medications Home Meds Reported Medications Zoledronic Acid/Mannitol&Water (Zoledronic Acid 5 mg/100 ml) 5 Mg/100 Ml Infus..btl, 1 02/08/17 Metoprolol Tartrate (Metoprolol Tartrate) 50 Mg Tablet, 25 MG PO BIDWM, TAB Take 1 tablet, by mouth, 2 times a day with meals. 02/08/17 Melatonin (Melatonin) 3 Mg Tablet, 1 TAB PO HS, #30 TAB 2 Refills 02/08/17 Lisinopril (Lisinopril) 10 Mg Tablet, 10 MG PO DAILY for HYPERTENSION, TAB 02/08/17 Phenobarbital (Phenobarbital) 30 Mg Tablet, 60 MG PO HS 10/06/13 Calcium Carbonate (Os-John 500) 1 Tab Tablet, 2 TAB PO DAILY 01/21/12 Phenobarbital (Phenobarbital) 30 Mg Tablet, 90 MG PO AM 08/30/09 Loperamide Hcl (Imodium A-D) 2 Mg Tablet, 1 TAB PO PRN 08/30/09 Multivitamins (Daily Multiple Vitamin) 1 Tab Tablet, 1 TAB PO DAILY 08/30/09 Allergies: Coded Allergies: aspirin (Verified Allergy, Unknown, COLON PROBLEMS, 02/08/17) Family History Family History: Father of lung cancer (smoker) Mother of colon cancer No family hx of stroke, heart disease, or blood clots Social History Smoking Status: Former smoker (quit 10-15 years ago) Substance Use Type: does not use Alcohol Intake: none Marital Status: Current Occupational Status: retired Prior Occupation: train driver; [employer] Advance Directives: Yes Full Code Social History Comments PCP: Dr. Timmons Review of Systems Unable to Obtain Comments See HPI All Other Systems All Other Systems: Reviewed (remainder of 10-point ROS Neg.) Physical Exam General General Nourishment: well nourished, well developed Vital Signs Vital Signs Date Time Temp Pulse Resp B/P Pulse Ox O2 Delivery O2 Flow Rate FiO2 02/08/17 15:09 97.5 59 18 143/65 93 Room Air Height (Feet): 5 Height (Inches): 1.00 Eyes Brief: FOUND: EOMI, PERRL, NOT FOUND: scleral icterus ENMT Brief: FOUND: mucosa moist, NOT FOUND: pharnyx erythema Neck Brief: NOT FOUND: adenopathy, nuchal rigidity Respiratory Auscultation: FOUND: normal, NOT FOUND: rales, rhonchi, wheezes Cardiovascular Auscultation: FOUND: S1, S2, regular Peripheral Pulses: 2+: Dorasalis Pedis (L), Dorsalis Pedis (R), Posterior Tibial (L), Posterior Tibial (R), Radial (L), Radial (R) Edema: 0: Anasarca, Arm (L), Arm (R), Face, Leg (L), Leg (R) Abdomen Inspection: NOT FOUND: distention Palpation: FOUND: soft, NOT FOUND: McBurney's point tender, Geiger's sign, involuntary guarding, rebound, tender, voluntary guarding Auscultation: FOUND: normo active Musculoskeletal (brief) Musculoskeletal Brief: FOUND: extremities move equally, NOT FOUND: deformity Integumentary (brief) Integumentary Brief: FOUND: dry, pink, warm Integumentary General: FOUND: dry, warm Color: FOUND: pink Neurologic (brief) Neurological Brief: FOUND: cerebellar (intact - alternating fingers), cranial 2 -12 intact (very subtle loss of left nasolabial fold with the corner of her mouth slightly downward), motor (biceps and community support worker strength on left arm was 4+/5 compared to 5/5 on right; triceps and shoulders, hips, quads, hamstrings, ankles were all equal bilaterally at 5/5), other (no pronator drift), sensory ( intact to light touch) Neurologic GCS Eye Opening: (4)Spontaneous GCS Verbal: (5)Oriented GCS Motor: (6)Obeys Commands RN Documented GCS Total: 15 Psychiatric (brief) FOUND: alert, attentive, normal affect, oriented Laboratory Laboratory Tests Test 02/08/17 12:58 02/08/17 13:24 02/08/17 14:28 Glucometer 104mg/dL White Blood Count 5.6T/MM3 Red Blood Count 4.19M/MM3 Hemoglobin 14.1GM/DL Hematocrit 41.6% Mean Corpuscular Volume 99.3UM3 Mean Corpuscular Hemoglobin 33.7UUG Mean Corpuscular Hemoglobin Concent 33.9GM/DL RDW Standard Deviation 42.6FL Platelet Count 241T/MM3 Mean Platelet Volume 10.5UM3 Immature Granulocyte % (Auto) 0.2% Neutrophils (%) (Auto) 52.5% Lymphocytes (%) (Auto) 29.1% Monocytes (%) (Auto) 11.0% Eosinophils (%) (Auto) 6.3% Basophils (%) (Auto) 0.9% Absolute Immature Granulocyte (auto 0.01T/MM3 Absolute Neutrophils (auto) 2.9T/MM3 Absolute Lymphocytes (auto) 1.6T/MM3 Absolute Monocytes (auto) 0.6T/MM3 Absolute Eosinophils (auto) 0.4T/MM3 Absolute Basophils (auto) 0.1T/MM3 Prothromb Time International Ratio 1.06 Activated Partial Thromboplast Time 27.6SEC Turbidity < 20 Sodium Level 143MEQ/L Potassium Level 4.7MEQ/L Chloride Level 104MEQ/L Carbon Dioxide Level 27MEQ/L Anion Gap 12MEQ/L Blood Urea Nitrogen 15.0MG/DL Creatinine 0.7MG/DL Glomerular Filtration Rate Calc 82 BUN/Creatinine Ratio 21RATIO Glucose Level 104MG/DL Calculated Osmolality 276MOSM/KG Calcium Level 9.6MG/DL Total Bilirubin 0.40MG/DL Icterus Index < 2 Aspartate Amino Transf (AST/SGOT) 21U/L Alanine Aminotransferase (ALT/SGPT) 30U/L Alkaline Phosphatase 62U/L Troponin I < 0.012ng/ml Total Protein 7.2G/DL Albumin 4.6G/DL Globulin 2.6G/DL Albumin/Globulin Ratio 1.8RATIO Chemistry Specimen Hemolysis < 15 Urine Collection Type Cleancatch-midstream Urine Color Yellow Urine Turbidity Clear Urine pH 7.0 Urine Specific [place] <=1.005 Urine Protein Negative Urine Glucose (UA) Negative Urine Ketones Negative Urine Blood Negative Urine Nitrite Negative Urine Bilirubin Negative Urine Urobilinogen 0.2EU/DL Urine Leukocyte Esterase Trace Urinalysis Comment Microscopic not ind. Assessment & Plan Problems: (1) Dysarthria Status: Acute Assessment & Plan: R/O stroke (2) Bradycardia Status: Acute (3) Ulcerative colitis Onset Date: ~ 10/06/1979 Status: Chronic (4) Epilepsy Status: Chronic (5) Hypertension Status: Chronic Plan/Intensity of Service Admit to observation status, Dr. Duque as attending hospitalist. Dysarthria, subtle left facial droop, and very mild left arm weakness, all concerning for acute stroke. We'll obtain stroke workup including echocardiogram , carotid Doppler and MRI of the brain. She does not have a pacemaker and has never had a stent. Discussed aspirin allergy. Patient reports it is not an allergy, but one of her doctors told her not to take aspirin because of a GI bleed, a very long time ago. She is not opposed to trying it again. Will start aspirin 81 mg daily. Check lipid panel. EKG showed sinus bradycardia with a first-degree AV block and left axis deviation. She takes metoprolol 25 mg twice a day. Blood pressure was mildly elevated at 147/80. We'll continue beta niranjan at current dose and monitor heart rate and rhythm on telemetry. Trend troponin. Will ask nurses to obtain neurochecks. Ambulate 3 times a day. Will consult PT, OT and speech, however, given the weekend, they might not be able to get in to evaluate her prior to discharge. History of seizures, on phenobarbital. Will obtain a phenobarbital level. Orders were discussed with Dr. Duque. DVT Prophylaxis: SCD'S Code Status Full Code Hospital Course Summary Disclaimer The hospital course summary below is not to be considered part of the above Progress Note. Hospital Course Summary 02/08/17 Admit to observation status, Dr. Duque as attending hospitalist. Dysarthria, subtle left facial droop, and very mild left arm weakness, all concerning for acute stroke. We'll obtain stroke workup including echocardiogram , carotid Doppler and MRI of the brain. She does not have a pacemaker and has never had a stent. Discussed aspirin allergy. Patient reports it is not an allergy, but one of her doctors told her not to take aspirin because of a GI bleed, a very long time ago. She is not opposed to trying it again. Will start aspirin 81 mg daily. Check lipid panel. EKG showed sinus bradycardia with a first-degree AV block and left axis deviation. She takes metoprolol 25 mg twice a day. Blood pressure was mildly elevated at 147/80. We'll continue beta niranjan at current dose and monitor heart rate and rhythm on telemetry. Trend troponin. Will ask nurses to obtain neurochecks. Ambulate 3 times a day. Will consult PT, OT and speech, however, given the weekend, they might not be able to get in to evaluate her prior to discharge. History of seizures, on phenobarbital. Will obtain a phenobarbital level. WESTON DUQUE MD 02/08/17 1800: Past Medical History Current Medications Home Meds Reported Medications Zoledronic Acid/Mannitol&Water (Zoledronic Acid 5 mg/100 ml) 5 Mg/100 Ml Infus..btl, 1 02/08/17 Metoprolol Tartrate (Metoprolol Tartrate) 50 Mg Tablet, 25 MG PO BIDWM, TAB Take 1 tablet, by mouth, 2 times a day with meals. 02/08/17 Melatonin (Melatonin) 3 Mg Tablet, 1 TAB PO HS, #30 TAB 2 Refills 02/08/17 Lisinopril (Lisinopril) 10 Mg Tablet, 10 MG PO DAILY for HYPERTENSION, TAB 02/08/17 Phenobarbital (Phenobarbital) 30 Mg Tablet, 60 MG PO HS 10/06/13 Calcium Carbonate (Os-John 500) 1 Tab Tablet, 2 TAB PO DAILY 01/21/12 Phenobarbital (Phenobarbital) 30 Mg Tablet, 90 MG PO AM 08/30/09 Loperamide Hcl (Imodium A-D) 2 Mg Tablet, 1 TAB PO PRN 08/30/09 Multivitamins (Daily Multiple Vitamin) 1 Tab Tablet, 1 TAB PO DAILY 08/30/09 Allergies: Coded Allergies: aspirin (Verified Allergy, Unknown, COLON PROBLEMS, 02/08/17) Assessment & Plan Assessment 02/08/2017-I reviewed this chart, the patient history, and the SITE COORDINATOR's/PA's documented findings as above. We discussed and formulated the assessment and plan as above with the additions below.-Dr. Duque Patient was seen this evening accompanied by her , daughter and granddaughter. The patient states she was noted to have slurred speech around 11 :00 this morning. Noticed any other problems. She denies any difficulty swallowing but noticed it was a little slower when she swallowed her pills today. She has a mild headache which is not uncommon for her. She denies any difficulty walking. She has not noticed any numbness, tingling or weakness anywhere. She is not had any difficulties with word finding. She denies any vision difficulties. She has been in her normal state of health without any fever, chills or sweats. She is not on any new medications. Her phenobarbital level has not been changed. She has history of seizures but no recent seizures. She does have a history of gastric surgery to remove ulcers and underwent vagotomy. She is likely not a good candidate for long-term aspirin. On exam the patient is alert and oriented 3 and in no acute distress. HEENT reveals pupils to be equal round and reactive. Sclera anicteric. Oropharynx is moist. Neurologic exam: Cranial nerves II through XII are grossly intact other than mildly slurred speech, very mild left facial droop and questionable deviation of the tongue to the left. Motor strength of the upper extremities reveals a mild decrease in left community support worker strength. Finger to nose testing is mildly slower on the left. Patient is right-handed. Strength in the legs is normal and equal bilaterally. The patient has mild slurred speech but speech is fluent and without apparent word finding difficulties. Neck is supple without lymphadenopathy or thyromegaly. Carotids are silent. Chest is clear to auscultation. Cardiac vascular reveals a regular rate and rhythm. Abdomen is soft and nontender. Extremities are free of edema. Skin is warm and dry and without rashes. Impression Probable stroke with slurred speech, left facial droop, mild left hand weakness History of seizures on phenobarbital History of hypertension Mild bradycardia-likely secondary to beta niranjan History of ulcerative colitis History of gastric ulcers requiring surgical treatment with resection of gastric ulcers and vagotomy Plan Admit for probable stroke. MRI brain. Echocardiogram. Lipid panel. Every 4 hours neuro checks. PT, OT, speech therapy eval and treat. Carotid Dopplers. Likely switch to Plavix tomorrow. Start Lipitor and await lipid geological technical officer on telemetry Hold antihypertensives for now hold antihypertensives for now due to probable acute stroke. Probably restart the next 1-2 days KAY CONNOR APRN February 08, 2017 15:20 WESTON DUQUE MD February 08, 2017 18:00
[2017-02-08] MEDS: ASPIRIN 81 MG CHEWABLE TABLET PO SCH (16:40)
--- NOTE | 2017-02-08 17:14 | NUR ---
STATUS PT IS A&OX3. CALLS FOR NEEDS. SWALLOWED PILLS WHOLE WITHOUT DIFFICULTY. PT IS ON RA. NO PAIN NOTED. NO FACIAL DROOPING NOTED. FAMILY REPORTS HER SPEECH IS STILL SLURRED, VERY HARD TO TELL. STRENGTHS ARE EQUAL EVERYWHERE EXCEPT A VERY MILD WEAKNESS NOTED IN THE LEFT HAND GRASP.
--- NOTE | 2017-02-08 19:52 | NUR ---
MRI PT BACK FROM MRI. PT USED THE WHEELCHAIR. ACCOMPANIED BY MRI STAFF.
[2017-02-08 19:59] VITALS: BP 144/69; PULSE 55; TEMP 97.3; O2SAT 97
--- NOTE | 2017-02-08 20:56 | DI ---
Indication: ITS.REASON: poss stroke PROCEDURE: MRI BRAIN W/O CONTRAST: Encounter: Initial Comparisons: None. Technique: Multiplanar, multisequence, MR imaging of the head without contrast was acquired. FINDINGS: There is a small infarct in the anterior right aspect of the celestino seen on diffusion weighted image #7 measuring 7 mm in anteroposterior dimension. Severe generalized atrophy. The ventricles are proportional to atrophy. There are extensive confluent areas of T2-weighted and T2 FLAIR weighted signal abnormality in the deep frontoparietal white matter that most likely represent small vessel ischemic disease. This is of a degree that is considered to be normal for the patient's age. The brain stem, cerebellum, and cerebral hemispheres otherwise have a normal morphologic appearance as well as MR signal intensity on all pulse sequences. There is no evidence of an intracranial mass lesion, intracranial hemorrhage, or hydrocephalus. The visualized portions of the orbits, calvarium, and skull base demonstrate no significant abnormality. Moderate pansinus mucosal thickening. IMPRESSION: 1. Small acute right pontine infarct. 2. Advanced atrophy and white matter disease for age. .
--- NOTE | 2017-02-08 21:35 | NUR ---
STATUS PT IN BED SLEEPING. ALERT AND ORIENTED. AMBULATED TO THE BATHROOM X 1 PERSON ASSIST. GAIT STEADY. LEFT UPPER EXTREMITY A LITTLE WEAKER THAN RIGHT.DENIED ANY PAIN. VSS. EDUCATED ABOUT CALL LIGHT USE AND PT SAFETY.
[2017-02-08] MEDS ORDERED: PHENOBARBITAL 32.4 MG TABLET PO SCH (22:00)
[2017-02-08] MEDS ORDERED: ATORVASTATIN 20 MG TABLET PO SCH (22:00)
[2017-02-08] MEDS: MELATONIN 1 MG TABLET PO SCH (22:00)
[2017-02-09 01:08] VITALS: BP 118/63; PULSE 61; RESP 18; TEMP 98.2; O2SAT 93
[2017-02-09 01:25] LABS: ANION GAP 12 MEQ/L (5-15); BUN/CREATININE RATIO 24 RATIO (6-26); CALCIUM 9.2 MG/DL (8.4-10.2); CHLORIDE 107 MEQ/L (98-107); CO2 - CARBON DIOXIDE 25 MEQ/L (22-30); CREATININE 0.7 MG/DL (0.7-1.2); GLOMERULAR FILTRATION RATE 82; GLUCOSE 98 MG/DL (65-110); POTASSIUM 3.8 MEQ/L (3.6-5); SODIUM 144 MEQ/L (134-144)
--- NOTE | 2017-02-09 06:05 | NUR ---
SUMMARY PT SLEEPING AT THE MOMENT. PT SLEPT WELL THIS SHIFT. DENIED ANY PAIN OR DISCOMFORT. ASSIST X 1 WITH AMBULATION TO THE BATHROOM. PT IS ALERT AND ORIENTED. SCDS ON ALL NIGHT. VITAL SIGNS STABLE. EDUCATED HYDRODYNAMICS PROFESSOR LIGHT USE AND PT SAFETY. NO CHANGES IN LOC.
[2017-02-09 07:52] VITALS: BP 116/65; PULSE 60; RESP 18; TEMP 97.7; O2SAT 94
--- NOTE | 2017-02-09 08:53 | DI ---
Indication: ITS.REASON: TIA sx PROCEDURE: CT HEAD W/O CONTRAST: Encounter: Initial Comparison: Brain MRI dated February 08, 2017 Technique: Axial CT images through the head were performed without contrast. Iterative Reconstruction dose reducing technique was utilized. FINDINGS: Moderate generalized atrophy. The ventricles are proportional to atrophy. Old lacunar infarcts in the basal ganglia. There are extensive confluent areas of low attenuation in the white matter which most likely represent changes from chronic microvascular ischemia. The brainstem, cerebellum, and cerebral hemispheres otherwise have a normal morphology and CT attenuation. There is no evidence of midline displacement. No hemorrhage, signs of acute territorial stroke, mass effect, mass lesions, or edema is evident. The visualized portions of the skull base, midface, and calvarium demonstrate no abnormality. Moderate to severe ethmoid all sinus disease. Mild mucosal thickening in the maxillary sinuses and ethmoids. The tympanic and mastoid cavities appear normal. IMPRESSION: No acute intracranial abnormality or hemorrhage. There is a preliminary report by [facility]. .
[2017-02-09] MEDS: ASPIRIN 81 MG CHEWABLE TABLET PO SCH (08:55)
[2017-02-09] MEDS: MULTIVITAMIN PLAIN TABLET PO SCH (08:55)
[2017-02-09] MEDS: CALCIUM 500 MG TABLET PO SCH (08:55)
[2017-02-09] MEDS: PHENOBARBITAL 32.4 MG TABLET PO SCH (08:56)
[2017-02-09] MEDS ORDERED: LISINOPRIL 10 MG TABLET PO SCH (09:00)
[2017-02-09] MEDS ORDERED: ASPIRIN 81 MG CHEWABLE TABLET PO SCH (09:00)
[2017-02-09 14:36] VITALS: BP 152/79; PULSE 74; RESP 16; TEMP 97.8; O2SAT 94
--- NOTE | 2017-02-09 16:08 | PNPDOC ---
Subjective Date DATE: 02/09/17 TIME: 16:00 Subjective The patient was seen earlier this morning and then again later this afternoon with her family. States she is doing well. She is eating and drinking well and having no difficulty swallowing. She thinks her slurred speech is a little bit better. She denies any numbness or tingling anywhere. She has not noticed any new weakness. She denies any visual difficulties. She denies any chest pains or palpitations. She denies any shortness of breath. She was able to get up and walk with physical therapy in the halls without difficulty. Physical therapist stated that she was able to walk her dog in the halls and the dog was pulling her but the patient did not lose her balance. Objective Vital Signs Vital signs Vital Signs Date Time Temp Pulse Resp B/P Pulse Ox O2 Delivery O2 Flow Rate FiO2 02/09/17 14:36 97.8 74 16 152/79 94 Room Air GEN-alert, oriented, no acute distress HEENT-sclera anicteric, pupils equal round reactive, oropharynx is moist NECK-supple CV-regular rate and rhythm, telemetry shows no arrhythmias CHEST-clear to auscultation bilaterally ABD-soft, nontender, nondistended with positive bowel sounds -no Pastor EXT-no edema NEURO-cranial nerves II through XII reveal mild slurred speech, left droop at the corner of her mouth has improved, mild left tongue deviation. Motor strength in the left hand is minimally decreased compared to the right. No leg weakness. SKIN-warm and dry and without rashes Height (Feet): 5 Height (Inches): 1.00 Weight (Kilograms): 59.300 Laboratory Laboratory Laboratory Tests 02/08/17 13:24 02/09/17 00:40 Laboratory Tests 02/08/17 13:24 Radiology MRI shows small acute right pontine infarct. Also seen was advanced atrophy and white matter disease for age. Carotid Doppler shows no hemodynamically significant stenosis in the internal carotid arteries bilaterally. There are mild bilateral calcified atherosclerotic plaque within the carotid bulb and bilateral internal carotid arteries Assessment & Plan Problems: (1) Dysarthria Status: Acute Assessment & Plan: R/O stroke (2) Bradycardia Status: Acute (3) Ulcerative colitis Onset Date: ~ 10/06/1979 Status: Chronic (4) Epilepsy Status: Chronic (5) Hypertension Status: Chronic Assessment 02/09/2017 Impression Small acute right pontine ischemic infarct-consistent with her slurred speech, left facial droop, mild left hand weakness-stroke symptoms are slightly improved today. History of seizures on phenobarbital-no recent seizures History of hypertension-blood pressure medication currently on hold Mild bradycardia on admission,-likely secondary to beta niranjan History of ulcerative colitis History of gastric ulcers requiring surgical treatment with resection of gastric ulcers and vagotomy Plan The patient was admitted yesterday for probable ischemic stroke. MRI did show an ischemic stroke. Continue Lipitor for now. Will change to Plavix and discontinue aspirin because of her history of gastric ulcers requiring surgery. We'll continue neuro checks. Echocardiogram has been obtained and is pending. Await lipid panel. PT evaluated the patient and recommended no further treatment. OT evaluated the patient and recommended exercises and possible outpatient OT. Await speech therapy evaluation, but at this time the patient is swallowing without difficulties. Continue on telemetry for now. Restart half dose beta niranjan tonight. Possible discharge tomorrow if doing well. Discussed with patient and family today. Greater than 35 minutes of time spent seeing and evaluating the patient, determining care plan and discussing care plan with the family. DVT Prophylaxis: SCD'S Code Status Full Code Hospital Course Summary Disclaimer The hospital course summary below is not to be considered part of the above Progress Note. Hospital Course Summary 02/08/17 Admit to observation status, Dr. Alonso as attending hospitalist. Dysarthria, subtle left facial droop, and very mild left arm weakness, all concerning for acute stroke. We'll obtain stroke workup including echocardiogram , carotid Doppler and MRI of the brain. She does not have a pacemaker and has never had a stent. Discussed aspirin allergy. Patient reports it is not an allergy, but one of her doctors told her not to take aspirin because of a GI bleed, a very long time ago. She is not opposed to trying it again. Will start aspirin 81 mg daily. Check lipid panel. EKG showed sinus bradycardia with a first-degree AV block and left axis deviation. She takes metoprolol 25 mg twice a day. Blood pressure was mildly elevated at 147/80. We'll continue beta niranjan at current dose and monitor heart rate and rhythm on telemetry. Trend troponin. Will ask nurses to obtain neurochecks. Ambulate 3 times a day. Will consult PT, OT and speech, however, given the weekend, they might not be able to get in to evaluate her prior to discharge. History of seizures, on phenobarbital. Will obtain a phenobarbital level. 02/08/2017-I reviewed this chart, the patient history, and the SALES ACTIVITY MANAGER's/PA's documented findings as above. We discussed and formulated the assessment and plan as above with the additions below.-Dr. Alonso Patient was seen this evening accompanied by her , daughter and granddaughter. The patient states she was noted to have slurred speech around 11 :00 this morning. Noticed any other problems. She denies any difficulty swallowing but noticed it was a little slower when she swallowed her pills today. She has a mild headache which is not uncommon for her. She denies any difficulty walking. She has not noticed any numbness, tingling or weakness anywhere. She is not had any difficulties with word finding. She denies any vision difficulties. She has been in her normal state of health without any fever, chills or sweats. She is not on any new medications. Her phenobarbital level has not been changed. She has history of seizures but no recent seizures. She does have a history of gastric surgery to remove ulcers and underwent vagotomy. She is likely not a good candidate for long-term aspirin. On exam the patient is alert and oriented 3 and in no acute distress. HEENT reveals pupils to be equal round and reactive. Sclera anicteric. Oropharynx is moist. Neurologic exam: Cranial nerves II through XII are grossly intact other than mildly slurred speech, very mild left facial droop and questionable deviation of the tongue to the left. Motor strength of the upper extremities reveals a mild decrease in left office automation technician strength. Finger to nose testing is mildly slower on the left. Patient is right-handed. Strength in the legs is normal and equal bilaterally. The patient has mild slurred speech but speech is fluent and without apparent word finding difficulties. Neck is supple without lymphadenopathy or thyromegaly. Carotids are silent. Chest is clear to auscultation. Cardiac vascular reveals a regular rate and rhythm. Abdomen is soft and nontender. Extremities are free of edema. Skin is warm and dry and without rashes. Impression Probable stroke with slurred speech, left facial droop, mild left hand weakness History of seizures on phenobarbital History of hypertension Mild bradycardia-likely secondary to beta niranjan History of ulcerative colitis History of gastric ulcers requiring surgical treatment with resection of gastric ulcers and vagotomy Plan Admit for probable stroke. MRI brain. Echocardiogram. Lipid panel. Every 4 hours neuro checks. PT, OT, speech therapy eval and treat. Carotid Dopplers. Likely switch to Plavix tomorrow. Start Lipitor and await lipid panel cutter on telemetry Hold antihypertensives for now hold antihypertensives for now due to probable acute stroke. Probably restart the next 1-2 days WESTON ALONSO MD February 09, 2017 16:03
[2017-02-09 17:34] VITALS: BP 159/89; PULSE 95
--- NOTE | 2017-02-09 17:46 | DI ---
Indication: ITS.REASON: poss stroke PROCEDURE: US CAROTID DOPP COMPLETE: TECHNIQUE: Grayscale, color and duplex Doppler imaging was performed of the carotid systems bilaterally. Velocities in cm/sec - validated velocity measurements with angiographic measurements, velocity criteria are extrapolated from diameter data as defined by the Society of Radiologists in Ultrasound Consensus Conference Radiology 2003; 229;340-346. RIGHT: PSV ICA 113 EDV ICA 18 PSV CCA 81.4 EDV CCA 18.6 SVR 1.4 PSV ECA 48.1 ICA Diameter reduction 20%-40% (1.2-1.4 [id number])% LEFT: PSV ICA 60.2 EDV ICA 10.7 PSV CCA 57.1 EDV CCA 10.3 SVR 1.1 PSV ECA 54.3 ICA Diameter reduction 10%-30% (1.0-1.2 PSV<110)% The right vertebral artery is patent with cephalic flow. The left vertebral artery is patent with cephalic flow. Scattered atherosclerotic plaque in the carotid bulbs and proximal ICAs with heavy plaque in the right bulb and intimal wall thickening in the right common carotid artery. No velocity elevation however. Moderate calcified and noncalcified plaque in the left proximal and mid ICA. IMPRESSION: No hemodynamically significant carotid stenosis. There is a preliminary report by [facility]. .
--- NOTE | 2017-02-09 17:51 | NUR ---
STATUS PT IS A&OX3. DENIES PAIN, SOA. REPORTS WEAKNESS IMPROVED TODAY. I HAVE NOT NOTICED ANY SLURRING OF HER SPEECH THE LAST COUPLE OF HOURS. AMBULATES WITH THE GAIT BELT AND A STANDBY ASSIST. PT DENIES ANY DIFFICULTY SWALLOWING PILLS OR EATING. CALLS FOR NEEDS. GRASPS ARE EQUAL THIS EVENING.
[2017-02-09] MEDS: MELATONIN 1 MG TABLET PO SCH (21:12)
[2017-02-09] MEDS ORDERED: ATORVASTATIN 40 MG TABLET PO SCH (22:00)
[2017-02-09] MEDS ORDERED: PHENOBARBITAL 32.4 MG TABLET PO SCH (22:00)
[2017-02-10 00:32] VITALS: BP 118/69; PULSE 66; RESP 20; TEMP 98.6
--- NOTE | 2017-02-10 06:15 | NUR ---
SUMMARY PT SLEPT WELL THIS SHIFT. ALERT AND ORIENTED. DENIED ANY PAIN. NO CHANGES IN LOC THIS SHIFT. PT DENIES ANY HEADACHE. NO WEAKNESS NOTED ON THE EXTREMITIES. NO DIFFICULTIES SWALLOWING OR IN SPEECH.
[2017-02-10 07:40] VITALS: BP 148/82; PULSE 63; RESP 20; TEMP 97.6; O2SAT 93
[2017-02-10] MEDS ORDERED: CLOPIDOGREL 75 MG TABLET PO SCH (09:00)
[2017-02-10] MEDS: CALCIUM 500 MG TABLET PO SCH (09:16)
[2017-02-10] MEDS: MULTIVITAMIN PLAIN TABLET PO SCH (09:16)
[2017-02-10] MEDS: PHENOBARBITAL 32.4 MG TABLET PO SCH (09:17)
--- NOTE | 2017-02-10 11:05 | NUR ---
changed to inpatient status.
--- NOTE | 2017-02-10 11:28 | NUR ---
SPEECH THERAPY: DYSPHAGIA EVALUATION Dysphagia evaluation completed. See results in EMR under other reports. Pt may tolerate a regular diet/regular liquids. Pt would benefit from short term outpatient speech therapy after discharge to treat dysarthria of speech. Pt was in agreement.
--- NOTE | 2017-02-10 12:44 | NUR ---
Speech is still a little slurry,no trouble with swallowing. up with standby assit gait is fairly steady, up to chair for meals.
--- NOTE | 2017-02-10 13:01 | STEVAL ---
Eval Subjective and History Date/Time of Eval DATE: 02/10/17 TIME: 11:34 Medical Diagnosis Possible stroke, slurred speech Treatment Order: Assessment, Dev./Imp. tx plan Orientations: Place, Time, Alert, Cooperative Primary Complaint: CVA, dysarthria Pain: No Date of Onset of Primary Com: 02/10/27 (date of evaluation) Clinical Test Results: Brain MRI results indicated small acute right pontine infarct and advanced atrophy and white matter disease for age. Prior History of This Problem: No Patient's Goals: Pt did not express goals. Significant Past Medical Hx: HTN, osteoporosis, ulcerative colitis, Epilepsy, Hyponatremia, Carcinoma in situ of cervix Medical History Form Reviewed: Yes Residence Type: Private home/apartment Lives With: Spouse Prior Functional Status: Pt reports that she was independent with cares. She cooks and cleans. She denied having hobbies but said she likes to take her dog for walks. Pt said she was on a regular diet and denies any history of swallowing problems. Current Functional Status: Pt is tolerating a regular diet with regular liquids. Her speech is intelligible however, some sounds are slurred. Pt stated that her speech is almost back to normal. Education Subject: Diet, Treatment Plan Person(s) Educated: Patient Instruction Understanding Demo: Pt. verbalizes understand Education Comment CALL CENTER COORDINATOR educated patient on reasoning for evaluation. Patient was agreeable to evaluation. Dysphagia Evaluation Evaluation Location: Bed Evaluation Angle: 90 Oral Peripheral Exam-facial: Facial Symmetry: Minimal Impairment (slight flaccidity on the left w/o droop ) Tongue Elevation: No Impairment (WFL) Tongue Lateralization: No Impairment (WFL) Tongue Protrusion: No Impairment (WFL) Tongue Retraction: No Impairment (WFL) Tongue Extension Midline: No Impairment (WFL) Labial Approximation: No Impairment (WFL) Intraoral Air Pressure: Minimal Impairment (slight flaccidity on the left) Volitional Cough: No Impairment (WFL) Palatal Elevation: No Impairment (WFL) Larynx Elevation During Swallo: No Impairment (WFL) Saliva Control: No Impairment (WFL) Dentition: Natural, Dentures (upper) Oral Peripheral Exam Comment: Pt is able to follow oral motor commands without difficulty. She presents with adequate oral motor strength and range of motion. Slight flaccidity noted in the left cheek however, no droop noted or assymetry noted during smiling. Diodochokinetic exercises resulted in mild incoordination Lip Seal: Adequate-liquid, Adequate-pudding, Adequate-solid Lingual Manipulation: Adequate-liquid, Adequate-pudding, Adequate-solid Chewing: Adequate-solid Oral cavity clear post swallow: Adequate-liquid, Adequate-pudding, Adequate- solid Swallow initiated w/o delay: Adequate-liquid, Adequate-pudding, Adequate-solid Multiple swallows not needed: Adequate-liquid, Adequate-pudding, Adequate-solid Voice clear&dry post swallow: Adequate-liquid, Adequate-pudding, Adequate-solid No cough/throat clear: Adequate-liquid, Adequate-pudding, Adequate-solid Assessment/Plan of Care Speech Therapy Impressions: Pt assessed with thin water trials per straw, applesauce, and eleonora cracker trials. Pt demonstrated adequate oral phase of the swallow, a timely swallow response with adequate laryngeal elevation; no s/s of aspiration with all consistencies. The pt does present with mild dysarthria with slightly slurred speech on certain sounds. Conversational speech is intelligibile however, slight incoordination is noted. Pt would benefit from short term speech therapy to implement a home program for mild dysarthria. HALFWAY GOAL: Pt will improve intelligibility of speech by utilizing breathing techniques, oral motor exercises, and compensatory strategies as judged by CALL CENTER COORDINATOR, patient and/ or familiar communication partner in ( / ) sessions. SHORT TERM GOALS: Pt will complete exercises to improve strength and coordination of oral structures with minimal cues in __3/__3__ sessions. Pt will identify 3/3 compensatory strategies for improving dysarthric speech ( slowing rate, over articulation of speech, increased volume) independently. Pt will complete dysarthria drills at (word, sentence, phrase, and conversational level) and utilize compensatory strategies in 3/[address] Treatment Plan: Oral Motor Exercise ST Treatment Plan Frequency: three times per week Treatment Plan Duration: one week Plan of Care Comment Pt will receive speech therapy as an inpatient. If the pt is discharged from the hospital prior to treatment being completed, recommend short term out patient speech therapy. Recommended Diet: Regular diet Date of Visit 02/10/17 Time Visit Began: 09:45 Time Visit Ended: 10:15 ST Assess/Plan of Care: ST Treatment Charge: Matthew Cruz Minutes of Individual Therapy: 30 ION MOSQUERA MA February 10, 2017 11:35
[2017-02-10 14:50] VITALS: BP 141/74; PULSE 69; RESP 20; TEMP 97.9; O2SAT 93
--- NOTE | 2017-02-10 15:25 | NUR ---
CM CM IN TO VISIT PT. CM EXPLAINED ROLL AND PROVIDED CONTACT INFORMATION. PT PLANS TO GO HOME WITH AND DENIES NEEDS AT THIS TIME. PT AWARE TO CONTACT CM SHOULD NEEDS ARISE.
[2017-02-10] MEDS ORDERED: METO25TA6 PO (15:26)
[2017-02-10] MEDS ORDERED: ATOR40TA PO (15:26)
[2017-02-10] MEDS ORDERED: CLOP75TA PO (15:26)
--- NOTE | 2017-02-10 15:30 | NUR ---
dc instructions reviewed ivl pulled medications and changed med doses reviewed with pt and dc per wc to home. Prescriptions called to [facility] pharmacy.
--- NOTE | 2017-02-10 16:10 | DSPDOC ---
KAY CONNOR PARALEGALS 02/10/17 1608: General Date Date DATE: 02/10/17 TIME: 15:59 Attending Physician Antonella Duque MD Admitting Physician Antonella Duque MD Consulting Physician Admitting Diagnosis CVA R/O Discharge Diagnosis Acute stroke with dysarthria Radiology MRI BRAIN W/O CONTRAST 1. Small acute right pontine infarct. 2. Advanced atrophy and white matter disease for age. CT HEAD W/O CONTRAST Moderate generalized atrophy. The ventricles are proportional to atrophy. Old lacunar infarcts in the basal ganglia. There are extensive confluent areas of low attenuation in the white matter which most likely represent changes from chronic microvascular ischemia. The brainstem, cerebellum, and cerebral hemispheres otherwise have a normal morphology and CT attenuation. There is no evidence of midline displacement. No hemorrhage, signs of acute territorial stroke, mass effect, mass lesions, or edema is evident. US CAROTID DOPP COMPLETE RIGHT: PSV ICA 113 EDV ICA 18 PSV CCA 81.4 EDV CCA 18.6 SVR 1.4 PSV ECA 48.1 ICA Diameter reduction 20%-40% (1.2-1.4 [id number])% LEFT: PSV ICA 60.2 EDV ICA 10.7 PSV CCA 57.1 EDV CCA 10.3 SVR 1.1 PSV ECA 54.3 ICA Diameter reduction 10%-30% (1.0-1.2 PSV<110)% The right vertebral artery is patent with cephalic flow. The left vertebral artery is patent with cephalic flow. Scattered atherosclerotic plaque in the carotid bulbs and proximal ICAs with heavy plaque in the right bulb and intimal wall thickening in the right common carotid artery. No velocity elevation however. Moderate calcified and noncalcified plaque in the left proximal and mid ICA. IMPRESSION: No hemodynamically significant carotid stenosis. History of Present Illness Tanya Little is a 76 y/o lady who woke up around 0900 in the morning of 02/08/17 in her typical state of health. She spoke with her daughter on the phone around 1100, and her daughter became concerned b/c she had slurred speech. Her family brought her to [facility] for further evaluation. Stroke w/u was ordered - NIH was 1 , CT was neg for acute stroke or bleed, labs were unremarkable. UA was negative for UTI. EKG showed sinus renetta with left axis deviation and trop was negative. No CN deficits were noted in the ED. Given her neuro symptoms, the patient was admitted to observation status for further evaluation. Mrs. Little was seen while still in the ED. She denies any recent health issues - no fever, chills, cough or congestion, dysphagia, sore throat, headaches, visual changes, chest pain or dyspnea, abdominal pain, nausea or vomiting, constipation (has a hx of loose stools), dysuria or frequency, leg swelling, rashes, paresthesias or unilateral weakness. She stated that her family noticed a little bit of drooping to the left side of her face - her smile looks different. She was told by one of her doctors not to take aspirin because of a GI bleed - but this was a very long time ago. She denies being allergic to it. In fact, she tried taking it for a week with her , and she denies having any side effects; but she didn't want to continue to take it if her doctor told her not to. Hospital Course Tanya was admitted to the hospital initially as an observation patient, later changed to inpatient. Stroke workup was obtained, and MRI confirmed a small acute right pontine infarct. Echocardiogram was obtained, but results were pending at time of discharge. Carotid Doppler did not show any significant stenosis. TSH was slightly abnormal at 0.35, for which outpatient follow-up was recommended. Lipid panel was drawn, but was pending at discharge. Phenobarbital level was also drawn, but this also was pending at time of discharge. She was mildly bradycardic on admission with pulse as low as 53, but this had improved to 69 by discharge. Physical therapy and occupational therapy were consulted. Patient did not require any physical therapy, and occupational therapy provided her with some home exercises. Speech therapy also evaluated her, and recommended outpatient therapy. Her blood pressure was monitored, and remained moderately elevated during her hospital course. Her home lisinopril was held, and she was instructed to resume taking it on 02/12/17. She was started on Plavix for secondary prevention as well as atorvastatin. She was not felt to be a good candidate for aspirin because of prior history of stomach ulcers and history of vagotomy. Electrolytes remained stable during her hospital course. By 02/10/17, she was ready for discharge. She was unable to confirm her home dose of metoprolol, and added that she no longer kept her prescriptions in their original bottles. She does admit that she is only taking it once a day instead of twice a day. Will continue at 12.5 mg twice a day, and a new prescription for metoprolol tartrate was called to her pharmacy. In addition, prescriptions for Plavix and atorvastatin were also called to her pharmacy. She was instructed to start taking her lisinopril on the 10th. She has a blood pressure machine at home, and she was encouraged to start taking her blood pressure twice a day and to keep a journal to review with Dr. Ospina. Her phenobarbital level, and lipid panel as well as her echocardiogram were all pending at time of discharge and will require outpatient follow-up. In addition , her abnormal TSH level will also require outpatient follow-up. She was referred to [facility] speech therapy for evaluation and ongoing treatment of her dysarthria. Discharge instructions were reviewed with the patient and her and their questions were answered. She was sent home in stable condition. On day of discharge, she was alert and oriented 3 with improved speech pattern. Her facial features are symmetric. Her lungs were clear and heart was regular rate and rhythm. This is a general summation of the patient's hospital course, and for more details please refer to the accompanying record. Time spent in discharge: 45 minutes. Problems: (1) Stroke Status: Acute (2) Dysarthria Status: Acute Assessment & Plan: R/O stroke (3) Bradycardia Status: Acute (4) Ulcerative colitis Onset Date: ~ 10/06/1979 Status: Chronic (5) Epilepsy Status: Chronic (6) Hypertension Status: Chronic Code Status Full Code Home Meds Active Scripts Metoprolol Tartrate (Metoprolol Tartrate) 25 Mg Tablet, 12.5 MG PO BIDWM for 30 Days, #30 TAB Prov:KAY CONNOR PARALEGALS 02/10/17 Atorvastatin Calcium (Lipitor) 40 Mg Tablet, 40 MG PO HS for 30 Days, #30 TAB Prov:KAY CONNOR PARALEGALS 02/10/17 Clopidogrel Bisulfate (Plavix) 75 Mg Tablet, 75 MG PO DAILY for 30 Days, #30 TAB Prov:KAY CONNOR PARALEGALS 02/10/17 Reported Medications Zoledronic Acid/Mannitol&Water (Zoledronic Acid 5 mg/100 ml) 5 Mg/100 Ml Infus..btl, 1 02/08/17 Melatonin (Melatonin) 3 Mg Tablet, 1 TAB PO HS, #30 TAB 2 Refills 02/08/17 Lisinopril (Lisinopril) 10 Mg Tablet, 10 MG PO DAILY for HYPERTENSION, TAB 02/08/17 Phenobarbital (Phenobarbital) 30 Mg Tablet, 60 MG PO HS 10/06/13 Calcium Carbonate (Os-John 500) 1 Tab Tablet, 2 TAB PO DAILY 01/21/12 Phenobarbital (Phenobarbital) 30 Mg Tablet, 90 MG PO AM 08/30/09 Loperamide Hcl (Imodium A-D) 2 Mg Tablet, 1 TAB PO PRN 08/30/09 Multivitamins (Daily Multiple Vitamin) 1 Tab Tablet, 1 TAB PO DAILY 08/30/09 Discontinued Reported Medications Metoprolol Tartrate (Metoprolol Tartrate) 50 Mg Tablet, 25 MG PO BIDWM, TAB Take 1 tablet, by mouth, 2 times a day with meals. 02/08/17 Face to Face Encounter I met with patient on the day of dismissal and discussed follow up appointments , medications, and safety plan. Discharge Disposition Discharged home with , stable Copies To 1: SAVANNAH OSPINA MD, STEPHANIE L MD 02/10/17 1644: Hospital Course 02/10/2017-I reviewed this chart, the patient history, and the PARALEGALS's/PA's documented findings as above. We discussed and formulated the assessment and plan as above with the additions below.-Dr. Duque The patient is doing quite well today. Slurred speech is still present but is improving. Left facial droop at the corner of her mouth seems to be resolved. School Psych[employer] strength is equal bilaterally. She denies any new complaints. She is eating and drinking well and denying any difficulty with swallowing. She was evaluated by speech therapy and was felt that her swallow was normal and she could tolerate a regular diet and regular liquids. On exam lungs were clear and cardiovascular revealed a regular rate and rhythm. Abdomen is soft and nontender. Extremities are free of edema. Speech is mildly slurred but is fluent. Patient appears to be stable for discharge today. I did call and talk with Dr. Ospina regarding discharge plans. The patient will follow-up later this week with Dr. Luinstra. Problems: Home Meds Active Scripts Metoprolol Tartrate (Metoprolol Tartrate) 25 Mg Tablet, 12.5 MG PO BIDWM for 30 Days, #30 TAB Prov:KAY CONNOR PARALEGALS 02/10/17 Atorvastatin Calcium (Lipitor) 40 Mg Tablet, 40 MG PO HS for 30 Days, #30 TAB Prov:KAY CONNOR PARALEGALS 02/10/17 Clopidogrel Bisulfate (Plavix) 75 Mg Tablet, 75 MG PO DAILY for 30 Days, #30 TAB Prov:KAY CONNOR PARALEGALS 02/10/17 Reported Medications Zoledronic Acid/Mannitol&Water (Zoledronic Acid 5 mg/100 ml) 5 Mg/100 Ml Infus..btl, 1 02/08/17 Melatonin (Melatonin) 3 Mg Tablet, 1 TAB PO HS, #30 TAB 2 Refills 02/08/17 Lisinopril (Lisinopril) 10 Mg Tablet, 10 MG PO DAILY for HYPERTENSION, TAB 02/08/17 Phenobarbital (Phenobarbital) 30 Mg Tablet, 60 MG PO HS 10/06/13 Calcium Carbonate (Os-John 500) 1 Tab Tablet, 2 TAB PO DAILY 01/21/12 Phenobarbital (Phenobarbital) 30 Mg Tablet, 90 MG PO AM 08/30/09 Loperamide Hcl (Imodium A-D) 2 Mg Tablet, 1 TAB PO PRN 08/30/09 Multivitamins (Daily Multiple Vitamin) 1 Tab Tablet, 1 TAB PO DAILY 08/30/09 Discontinued Reported Medications Metoprolol Tartrate (Metoprolol Tartrate) 50 Mg Tablet, 25 MG PO BIDWM, TAB Take 1 tablet, by mouth, 2 times a day with meals. 02/08/17 Copies To 1: SAVANNAH OSPINA MD, KAREN D PARALEGALS February 10, 2017 16:08 ANTONELLA DUQUE MD February 10, 2017 16:44
--- NOTE | 2017-02-10 18:50 | ECHOF ---
DATE OF PROCEDURE February 09, 2017 This is a two-dimensional echo with spectral Doppler, color-flow and M-mode. It was obtained in a patient with CVA. Left atrium is normal. Left ventricular end-diastolic dimension is normal. Left ventricular wall thickness is normal. LV systolic function is normal with ejection fraction of 65%. Right atrium is normal. Right ventricle is normal. Aortic root dimension is normal. Mitral valve shows mild mitral regurgitation with no stenosis. Aortic valve shows mild aortic insufficiency with no stenosis. Tricuspid valve shows mild tricuspid regurgitation with normal estimated pulmonary artery systolic pressure of 27. Pulmonary valve shows trace of pulmonary insufficiency. There is no pericardial effusion. Grossly, no intracardiac thrombus or mass. IMPRESSION 1. Technically difficult study. 2. Grossly, no intracardiac thrombus or mass. 3. Normal LV systolic function with ejection fraction of 65%. 4. Mild mitral regurgitation. 5. Mild tricuspid regurgitation with normal estimated pulmonary artery systolic pressure of 27. 6. Mild aortic insufficiency. 7. Trace of pulmonary insufficiency. MTDD
[2017-02-11 01:50] LABS: RISK FACTOR 2.4 RATIO (0-4.0)
[2017-02-11 11:38] LABS: LDL CHOLESTEROL,CALCULATED 69.4 (66-159); VLDL CHOLESTEROL 25.6 MG/DL (0-28)
== END 2017-02-10 16:00 | disposition home or self-care (01) | DRG 65 ==
LOC: ED 12:51 → EDHOLD 14:30 → MED 15:05 → OBSVTOIN 02-10 11:06
PROVIDERS: ADMIT Internal Medicine; ATTEND Internal Medicine
DX: I63.9 Cerebral infarction, unspecified (principal); K51.90 Ulcerative colitis, unspecified, without complications; R47.1 Dysarthria and anarthria; I10 Essential (primary) hypertension; R29.701 NIHSS score 1; M81.0 Age-related osteoporosis without current pathological fracture; G40.909 Epilepsy, unspecified, not intractable, without status epilepticus; Z87.891 Personal history of nicotine dependence
CPT/HCPCS: 36415; 80048; 80053; 80061; 80184; 81003; 82948; 84443; 84484; 85025; 85610; 85730; 93005; 93306; 96360; 99218